=== PATIENT | female | born 1970 | race African-American/Black ===

== ENCOUNTER 2016-10-28 11:13 | Inpatient (IN) | payer OTHER ==
[2016-10-28 12:26] VITALS: BMI 26.6
--- NOTE | 2016-10-28 13:38 | HP ---
CIWA Score - CIWA Score Nausea/Vomitin Muscle Tremors: 2 Anxiety: 4-Mod. Anxious/Guarded Agitation: 0-Normal Activity Paroxysmal Sweats: 3 Orientation: 0-Oriented Tacttile Disturbances: 0-None Auditory Disturbances: 0-None Visual Disturbances: 3-Moderate Sensitivity Headache: 0-None Present CIWA-Ar Total Score: 15 Admission ROS BHS - HPI Chief Complaint: "I'm sick and tired of being sick and tired and of getting high and I need a way out." Pt. is here to Detox from Alcohol. Allergies/Adverse Reactions: Allergies Allergy/AdvReac Type Severity Reaction Status Date / Time No Known Allergies Allergy Verified 10/28/16 12:34 History of Present Illness: Pt. is a 46 YO female here to detox from Alcohol. Pt. has had 1 previous detox admission at [facility]. Exam Limitations: No Limitations - Ebola screening Have you traveled outside of the country in the last 21 days: No Have you had contact with anyone from an Ebola affected area: No Have you been sick,other than usual withdrawal symptoms: No Do you have a fever: No - Review of Systems Constitutional: Diaphoresis, Loss of Appetite, Malaise, Night Sweats, Changes in sleep, Unintentional Wgt. Loss (Lost approx. 10 lbs. over last few days.) EENT: reports: Dental Problems (Upper Denture.) Respiratory: reports: No Symptoms reported Cardiac: reports: No Symptoms Reported GI: reports: Nausea, Poor Appetite : reports: No Symptoms Reported Musculoskeletal: reports: Back Pain (Six bulging discs.), Muscle Pain, Joint Stiffness (Bilateral knees.) Integumentary: reports: No Symptoms Reported Neuro: reports: Tremors Endocrine: reports: No Symptoms Reported Hematology: reports: Anemia (Iron-Deficiency type.) Psychiatric: reports: Judgement Intact, Mood/Affect Appropiate, Orientated x3, Anxious (On med.), Depressed (On med.) Other Systems: Reviewed and Negative Patient History - Patient Medical History Hx Anemia: Yes (Iron-Deficiancy; takes MVI.) Hx Asthma: Yes (Uses 2 Inhalers.) Hx Chronic Obstructive Pulmonary Disease (COPD): No Hx Cancer: No Hx Cardiac Disorders: No Hx Congestive Heart Failure: No Hx Hypertension: Yes (On med.) Hx Hypercholesterolemia: No Hx Pacemaker: No HX Cerebrovascular Accident: No Hx Seizures: No Hx Dementia: No Hx Diabetes: No Hx Gastrointestinal Disorders: No Hx Liver Disease: No Hx Genitourinary Disorders: No Hx Sexually Transmitted Disorders: No Hx Renal Disease (ESRD): No Hx Thyroid Disease: Yes (HYPERTHYROIDISM; On med.) Hx Human Immunodeficiency Virus (HIV): No (Last Tested: 2015: NEGATIVE.) Hx Hepatitis C: No (Last Tested: 2015: NEGATIVE.) Hx Depression: Yes (On med.) Hx Suicide Attempt: No (PATIENT DENIES CURRENT SI / HI.) Hx Bipolar Disorder: Yes (On meds.) Hx Schizophrenia: No Other Medical History: PTSD. - Patient Surgical History Past Surgical History: No Hx Neurologic Surgery: No Hx Cataract Extraction: No Hx Cardiac Surgery: No Hx Lung Surgery: No Hx Breast Surgery: No Hx Breast Biopsy: No Hx Abdominal Surgery: No Hx Appendectomy: No Hx Cholecystectomy: No Hx Genitourinary Surgery: No Hx Section: No Hx Orthopedic Surgery: No Hx Hysterectomy: No Anesthesia Reaction: No - PPD History Previous Implant?: Yes Documented Results: Positive w/o proof Implanted On Prior [facility] Admission?: No PPD to be Administered?: No - Reproductive History Patient is a Female of Child Bearing Age (11 -55 yrs old): Yes Last Menstrual Period: 10/06/14 Patient : No - Smoking Cessation Smoking history: Current every day smoker Have you smoked in the past 12 months: Yes Aproximately how many cigarettes per day: 6 Cigars Per Day: 0 Hx Chewing Tobacco Use: No Initiated information on smoking cessation: Yes 'Breaking Loose' booklet given: 10/28/16 (GIVEN ON UNIT.) - Substance & Tx. History Hx Alcohol Use: Yes Hx Substance Use: Yes Substance Use Type: Alcohol, Cocaine Hx Substance Use Treatment: Yes (1 Previous Detox admission at [facility].) - Substances Abused Alcohol Route: Oral Frequency: Daily Amount used: liquor- 3 pints, beer- 1 six pack Age of first use: 20 Date of Last Use: 10/28/16 Crack Route: Smoking Frequency: Daily Amount used: 10 bags Age of first use: 20 Date of Last Use: 10/28/16 Family Disease History - Family Disease History Family Disease History: Heart Disease: Mother (Alzheimer's Disease; Kidney Ca.) , [place]: Father ( FROM [place]. OF ?), Mother, Other: Grandparent (Hyperthyroidism.) , Mother, Son (Depression.), Daughter (Depression.) Admission Physical Exam S - Vital Signs Vital Signs: Vital Signs - 24 hr 10/28/16 12:21 Temperature 98.3 F Pulse Rate 88 Respiratory 20 Rate Blood Pressure 133/79 - Physical General Appearance: Yes: No Apparent Distress, Nourished, Appropriately Dressed , Tremorous HEENTM: Yes: Hearing grossly Normal, Normocephalic, Normal Voice, [place], Pharynx Normal Respiratory: Yes: Chest Non-Tender, Lungs Clear, No Respiratory Distress Neck: Yes: No masses,lesions,Nodules, Supple, Trachea in good position Breast: Yes: Breast Exam Deferred Cardiology: Yes: Regular Rhythm, Regular Rate, S1, S2 Abdominal: Yes: Normal Bowel Sounds, Non Tender, Soft, Protuberent Genitourinary: Yes: Within Normal Limits Back: Yes: Decreased Range of Motion Musculoskeletal: Yes: Gait Steady, Joint Stiffness, Muscle Pain Extremities: Yes: Tremors Neurological: Yes: Fully Oriented, Alert, Normal Mood/Affect, Normal Response Integumentary: Yes: Normal Color, Dry, Warm Lymphatic: Yes: Within Normal Limits - Diagnostic (1) HTN (hypertension) Current Visit: Yes Status: Chronic Qualifiers: Hypertension type: essential hypertension Qualified Code(s): I10 - Essential (primary) hypertension (2) Hyperthyroidism Current Visit: Yes Status: Chronic (3) Alcohol dependence with uncomplicated withdrawal Current Visit: Yes Status: Acute (4) Cocaine dependence, uncomplicated Current Visit: Yes Status: Acute (5) Nicotine dependence Current Visit: Yes Status: Chronic Qualifiers: Nicotine product type: cigarettes Substance use status: uncomplicated Qualified Code(s): F17.210 - Nicotine dependence, cigarettes, uncomplicated (6) Asthma Current Visit: Yes Status: Chronic Qualifiers: Asthma severity: mild persistent Asthma complication type: uncomplicated Qualified Code(s): J45.30 - Mild persistent asthma, uncomplicated (7) Acute sinus infection Current Visit: Yes Status: Acute Qualifiers: Sinusitis location: unspecified location Recurrence: not specified as recurrent Qualified Code(s): J01.90 - Acute sinusitis, unspecified Cleared for Admission S - Detox or Rehab S Level of Care: Medically Managed (ADVISED PATIENT TO FOLLOW-UP WITH [facility] / REHAB MEDICAL PROVIDER AFTER DISCSHARGE FROM DETOX FOR GENERAL MEDICAL ASSESSMENT.) Detox Regimen/Protocol: Librium BHS Breath Alcohol Content Breath Alcohol Content: 0 Urine Pregancy Test - Result Urine Test Results: Negative- NO Line Present Urine Drug Screen - Results Drug Screen Negative: No Urine Drug Screen Results: WINSOME-Cocaine
[2016-10-28] MEDS ORDERED: ACETAMINOPHEN 325 MG TABLET (FP) PO PRN (14:08)
[2016-10-28] MEDS ORDERED: MAG HYDROX/AL HYDROX/SIMETH 30 ML UNIT-DOSE CUP PO PRN (14:08)
[2016-10-28] MEDS ORDERED: guaiFENesin/D-METHORPHAN HB 10 ML UNIT-DOSE CUPS PO PRN (14:08)
[2016-10-28] MEDS ORDERED: MAGNESIUM CITRATE 300 ML BOTTLE PO PRN (14:08)
[2016-10-28] MEDS ORDERED: MENTHOL/PHENOL 1 EACH UD MM PRN (14:08)
[2016-10-28] MEDS ORDERED: LOPERAMIDE HCL 2 MG CAPSULE PO PRN (14:08)
[2016-10-28] MEDS ORDERED: MAGNESIUM HYDROX 2400MG/30ML ORAL SUSPENSION 30 ML CUP PO PRN (14:08)
[2016-10-28] MEDS ORDERED: P-EPHED 60MG/TRIPROLIDI 2.5MG TABLET PO PRN (14:08)
[2016-10-28] MEDS ORDERED: diphenhydrAMINE HCL 50 MG CAPSULE PO PRN (14:08)
[2016-10-28] MEDS ORDERED: NICOTINE POLACRILEX 2 MG GUM BC PRN (14:08)
[2016-10-28] MEDS ORDERED: chlordiazePOXIDE HCL 25 MG CAPSULE PO PRN (14:08)
[2016-10-28] MEDS ORDERED: chlordiazePOXIDE HCL 25 MG CAPSULE PO ONE (14:08)
[2016-10-28] MEDS ORDERED: IBUPROFEN 400 MG TABLET (FP) PO PRN (14:08)
[2016-10-28] MEDS ORDERED: hydrOXYzine PAMOATE 50 MG CAPSULE (FP) PO PRN (14:08)
[2016-10-28] MEDS: NICOTINE 14 MG/24 HOURS TOPICAL PATCH TD SCH (14:47)
[2016-10-28] MEDS: AMOXICILLIN 500 MG CAPSULE (FP) PO SCH ×2 (15:25→23:30)
[2016-10-28] MEDS ORDERED: ALBUTEROL SO4 6.7 GM HFA INHALER IH PRN (15:31)
[2016-10-28] MEDS: chlordiazePOXIDE HCL 25 MG CAPSULE PO SCH ×2 (17:43→23:31)
[2016-10-28 18:17] LABS: URINE APPEARANCE CLEAR; URINE BILIRUBIN NEGATIVE (NEGATIVE); URINE COLOR YELLOW; URINE GLUCOSE (UA) NEGATIVE (NEGATIVE); URINE KETONE TRACE (NEGATIVE); URINE LEUK ESTERASE NEGATIVE (NEGATIVE); URINE NITRITE NEGATIVE (NEGATIVE); URINE PROTEIN NEGATIVE (NEGATIVE); URINE UROBILINOGEN 2.0 E.U/dl E.U./dl (0.2-1.0)
[2016-10-28 18:22] LABS: URINE BLOOD 1+ (NEGATIVE)
[2016-10-28 18:24] LABS: URINE BACTERIA RARE /hpf (NONE SEEN); URINE MUCUS FEW; URINE RBC 16 /hpf (0-3); URINE WBC 1 /hpf (3-5)
[2016-10-28] MEDS: NIFEdipine 10 MG CAPSULE (FP) PO SCH (23:31)
[2016-10-28] MEDS: THIAMINE HCL 100 MG TABLET (FP) PO SCH (23:31)
[2016-10-28] MEDS: TOLNAFTATE 1% CREAM 15 GM TUBE TP SCH (23:31)
[2016-10-29] MEDS: AMOXICILLIN 500 MG CAPSULE (FP) PO SCH ×3 (05:52→22:32)
[2016-10-29] MEDS: chlordiazePOXIDE HCL 25 MG CAPSULE PO SCH ×4 (05:52→22:33)
[2016-10-29] MEDS: NIFEdipine 10 MG CAPSULE (FP) PO SCH (08:29)
--- NOTE | 2016-10-29 09:43 | CONSULT ---
[facility] Psychiatric Consult - Data Date of interview: 10/29/16 Admission source: [facility] Substance Abuse History: - Smoking Cessation. Smoking history: Current every day smoker. Have you smoked in the past 12 months: Yes. Aproximately how many cigarettes per day: 6. Cigars Per Day: 0. Hx Chewing Tobacco Use: No. Initiated information on smoking cessation: Yes. 'Breaking Loose' booklet given : 10/28/16 (GIVEN ON UNIT.). - Substance & Tx. History. Hx Alcohol Use: Yes. Hx Substance Use: Yes. Substance Use Type: Alcohol, Cocaine. Hx Substance Use Treatment: Yes (1 Previous Detox admission at [facility] - Substances Abused. Alcohol. Route: Oral. Frequency: Daily. Amount used: liquor- 3 pints, beer- 1 six pack. Age of first use: 20. Date of Last Use: 10/28/16. Crack. Route: Smoking. Frequency: Daily. Amount used: 10 bags. Age of first use: 20. Date of Last Use: 10/28/16 Medical History: Asthma, HTN, Hyperthyroidism Psychiatric History: Patient reports history of depression and anxiety, reportsd taking prior to admission: Abilify 15mg poqd. Paxil 20mg poqd. Buspar 15mg poqd Physical/Sexual Abuse/Trauma History: Denies Additional Comment: Abilify 15mg poqd. Paxil 20mg poqd. Buspar 15mg poqd Mental Status Exam - Mental Status Exam Alert and Oriented to: Person Patient Appearance: Unkempt Mood: Apprehensive Affect: Mood Congruent Patient Behavior: Cooperative Speech Pattern: Appropriate Voice Loudness: Normal Thought Process: Goal Oriented Thought Disorder: Being Controlled Hallucinations: Denies Suicidal Ideation: Denies Homicidal Ideation: Denies Insight/Judgement: Fair Sleep: Difficulty falling asleep Appetite: Fair Muscle strength/Tone: Normal Gait/Station: Normal Additional Comments: Abilify 15mg poqd. Paxil 20mg poqd. Buspar 15mg poqd Psychiatric Findings - Problem List ([place] 1, 2,3) (1) Alcohol dependence with uncomplicated withdrawal Current Visit: Yes Status: Acute (2) Cocaine dependence, uncomplicated Current Visit: Yes Status: Acute (3) Hyperthyroidism Current Visit: Yes Status: Chronic (4) Nicotine dependence Current Visit: Yes Status: Chronic Qualifiers: Nicotine product type: cigarettes Substance use status: uncomplicated Qualified Code(s): F17.210 - Nicotine dependence, cigarettes, uncomplicated (5) Alcohol dependence Current Visit: No Status: Acute (6) Cocaine dependence Current Visit: No Status: Acute (7) Drug-induced mood disorder Current Visit: Yes Status: Acute - Initial Treatment Plan Initial Treatment Plan: Abilify 15mg poqd. Paxil 20mg poqd. Buspar 15mg poqd
[2016-10-29 10:00] LABS: MCH 25.3 pg (25.7-33.7); MCHC 31.6 g/dl (32.0-36.0); MEAN PLT VOLUME 9.6 fl (7.5-11.1); PLATELET COUNT 269 K/MM3 (134-434); RDW 16.9 % (11.6-15.6); WHITE BLOOD COUNT 4.4 K/mm3 (4.0-10.0)
--- NOTE | 2016-10-29 10:06 | CONSULT ---
[facility] Psychiatric Consult - Data Date of interview: 10/29/16 Admission source: [facility] Identifying data: This is 46 years old female with no psychiatric hospitalization history intoxicated withAlcohol, Cocaine and Nicotine Substance Abuse History: - Smoking Cessation. Smoking history: Current every day smoker. Have you smoked in the past 12 months: Yes. Aproximately how many cigarettes per day: 6. Cigars Per Day: 0. Hx Chewing Tobacco Use: No. Initiated information on smoking cessation: Yes. 'Breaking Loose' booklet given : 10/28/16 (GIVEN ON UNIT.). - Substance & Tx. History. Hx Alcohol Use: Yes. Hx Substance Use: Yes. Substance Use Type: Alcohol, Cocaine. Hx Substance Use Treatment: Yes (1 Previous Detox admission at [facility] - Substances Abused. Alcohol. Route: Oral. Frequency: Daily. Amount used: liquor- 3 pints, beer- 1 six pack. Age of first use: 20. Date of Last Use: 10/28/16. Crack. Route: Smoking. Frequency: Daily. Amount used: 10 bags. Age of first use: 20. Date of Last Use: 10/28/16 Medical History: Asthma, HTN, Hyperthyroidism history Psychiatric History: Patient reports history of depression and reports taking prior to admission: Abilify 15mg poqd. Paxil 20mg poqd. Buspar 15mg poqd Physical/Sexual Abuse/Trauma History: Denies Additional Comment: Abilify 15mg poqd. Paxil 20mg poqd. Buspar 15mg poqd Mental Status Exam - Mental Status Exam Alert and Oriented to: Person Cognitive Function: Fair Mood: Sad Affect: Flat Patient Behavior: Sedated, Cooperative Speech Pattern: Appropriate Voice Loudness: Mildly Soft/Quiet Thought Process: Circumstantial Thought Disorder: Being Controlled Hallucinations: Denies Suicidal Ideation: Denies Homicidal Ideation: Denies Insight/Judgement: Fair Sleep: Difficulty falling asleep Appetite: Weight gain Muscle strength/Tone: Moderate Hypotonicity Gait/Station: Shuffling Additional Comments: Abilify 15mg poqd. Paxil 20mg poqd. Buspar 15mg poqd Psychiatric Findings - Problem List ([place] 1, 2,3) (1) Alcohol dependence with uncomplicated withdrawal Current Visit: Yes Status: Acute (2) Cocaine dependence, uncomplicated Current Visit: Yes Status: Acute (3) Hyperthyroidism Current Visit: Yes Status: Chronic (4) Nicotine dependence Current Visit: Yes Status: Chronic Qualifiers: Nicotine product type: cigarettes Substance use status: uncomplicated Qualified Code(s): F17.210 - Nicotine dependence, cigarettes, uncomplicated (5) Alcohol dependence Current Visit: No Status: Acute (6) Cocaine dependence Current Visit: No Status: Acute (7) Drug-induced mood disorder Current Visit: Yes Status: Acute - Initial Treatment Plan Initial Treatment Plan: Abilify 15mg poqd. Paxil 20mg poqd. Buspar 15mg poqd
[2016-10-29 10:21] LABS: ALBUMIN 3.2 g/dl (3.4-5.0); ANION GAP 7 (8-16); CO2 25 mmol/L (21-32); GLUCOSE,RANDOM 83 mg/dL (74-106)
[2016-10-29 10:25] LABS: ALK PHOS 48 U/L (45-117); BILIRUBIN,TOTAL 0.4 mg/dL (0.2-1.0); CREATININE 0.9 mg/dL (0.55-1.02); SGOT/AST 8 U/L (15-37); SGPT/ALT 12 U/L (12-78); TOT PROT 6.3 g/dl (6.4-8.2)
[2016-10-29] MEDS: NICOTINE 14 MG/24 HOURS TOPICAL PATCH TD SCH (10:26)
[2016-10-29] MEDS: LORATADINE 10 MG TABLET PO SCH (10:27)
[2016-10-29] MEDS: ARIPiprazole 15 MG TABLET PO SCH (10:27)
[2016-10-29] MEDS: PARoxetine HCL 20 MG TABLET (FP) PO SCH (10:27)
[2016-10-29] MEDS: TOLNAFTATE 1% CREAM 15 GM TUBE TP SCH ×2 (10:27→22:34)
[2016-10-29] MEDS: PRENATAL VITAMINS W/ FOLIC ACID TABLET (FP) PO SCH (10:27)
[2016-10-29] MEDS: METHIMAZOLE 10 MG TABLET (FP) PO SCH (10:28)
[2016-10-29] MEDS: CYCLOBENZAPRINE HCL 10 MG TABLET (FP) PO PRN ×2 (10:33→22:33)
--- NOTE | 2016-10-29 11:03 | PN ---
S CIWA - CIWA Score Nausea/Vomitin-No Nausea/No Vomiting Muscle Tremors: 4-Moderate,w/Arms Extend Anxiety: 4-Mod. Anxious/Guarded Agitation: 4-Moderately Restless Paroxysmal Sweats: 3 Orientation: 0-Oriented Tacttile Disturbances: 0-None Auditory Disturbances: 0-None Visual Disturbances: 0-None Headache: 0-None Present CIWA-Ar Total Score: 15 BHS Progress Note (SOAP) Subjective: back pain sweats irritable interrupted sleep Objective: 10/29/16 11:02 Vital Signs Temperature 97.9 F 10/29/16 10:01 Pulse Rate 81 10/29/16 10:01 Respiratory Rate 18 10/29/16 10:01 Blood Pressure 117/79 10/29/16 10:01 O2 Sat by Pulse Oximetry (%) Laboratory Tests 10/28/16 10/29/16 10/29/16 18:00 07:00 07:00 WBC 4.4 RBC 4.19 Hgb 10.6 L Hct 33.5 MCV 80.0 MCHC 31.6 L RDW 16.9 H Plt Count 269 MPV 9.6 Sodium 141 Potassium 4.2 Chloride 109 H Carbon Dioxide 25 Anion Gap 7 L BUN 9 D Creatinine 0.9 D Creat Clearance w eGFR > 60 Random Glucose 83 Calcium 8.0 L Total Bilirubin 0.4 D AST 8 L ALT 12 Alkaline Phosphatase 48 D Total Protein 6.3 L Albumin 3.2 L Urine Color Yellow Urine Appearance Clear Urine pH 5.0 Ur Specific [place] 1.025 Urine Protein Negative Urine Glucose (UA) Negative Urine Ketones Trace H Urine Blood 1+ H Urine Nitrite Negative Urine Bilirubin Negative Urine Urobilinogen 2.0 e.u/dl H Ur Leukocyte Esterase Negative Urine RBC 16 Urine WBC 1 Ur Epithelial Cells Moderate Urine Bacteria Rare Urine Mucus Few awake/alert ambulating no acute distress Assessment: 10/29/16 11:03 withdrawal sx Plan: continue detox increase fluids lidocaine patch naproxyn bid
[2016-10-29] MEDS ORDERED: NIFEdipine E.R. 30 MG TABLET (FP) PO SCH (12:00)
[2016-10-29] MEDS: LIDOCAINE 5% TOPICAL PATCH TP SCH (12:04)
[2016-10-29] MEDS: NAPROXEN 500 MG TABLET (FP) PO SCH ×2 (12:04→22:33)
--- NOTE | 2016-10-29 13:43 | EKG ---
Test Reason : Blood Pressure : / mmHG Vent. Rate : 078 BPM Atrial Rate : 078 BPM P-R Int : 174 ms QRS Dur : 098 ms QT Int : 388 ms P-R-T Axes : 066 023 024 degrees QTc Int : 442 ms NORMAL SINUS RHYTHM WITH SINUS ARRHYTHMIA NORMAL ECG NO PREVIOUS ECGS AVAILABLE Confirmed by TAMMIE TOURE MD ([id number]) on 10/29/2016 1:42:41 PM Referred By: Confirmed By:TAMMIE TOURE MD
[2016-10-29] MEDS ORDERED: NIFEdipine E.R. 30 MG TABLET (FP) PO ONE (14:00)
[2016-10-29] MEDS: METHYL SALICYLATE/MENTHOL OINT 30 GM TUBE TP SCH (22:32)
[2016-10-29] MEDS: THIAMINE HCL 100 MG TABLET (FP) PO SCH (23:02)
[2016-10-30] MEDS: AMOXICILLIN 500 MG CAPSULE (FP) PO SCH ×3 (05:58→22:46)
[2016-10-30] MEDS: chlordiazePOXIDE HCL 25 MG CAPSULE PO SCH ×2 (05:58→11:23)
[2016-10-30] MEDS ORDERED: NIFEdipine 10 MG CAPSULE (FP) PO SCH (10:00)
[2016-10-30] MEDS: LIDOCAINE 5% TOPICAL PATCH TP SCH (11:18)
[2016-10-30] MEDS: METHIMAZOLE 10 MG TABLET (FP) PO SCH (11:18)
[2016-10-30] MEDS: PRENATAL VITAMINS W/ FOLIC ACID TABLET (FP) PO SCH (11:18)
[2016-10-30] MEDS: LORATADINE 10 MG TABLET PO SCH (11:19)
--- NOTE | 2016-10-30 11:19 | PN ---
[facility] CIWA - CIWA Score Nausea/Vomitin Muscle Tremors: 2 Anxiety: 2 Agitation: 2 Paroxysmal Sweats: 3 Orientation: 0-Oriented Tacttile Disturbances: 2-Mild Itch/Numbness/Burn Auditory Disturbances: 0-None Visual Disturbances: 0-None Headache: 0-None Present CIWA-Ar Total Score: 13 S Progress Note (SOAP) Subjective: interrupted sleep, sweats, lbp Objective: 10/30/16 11:14 Vital Signs Temperature 98.2 F 10/30/16 11:09 Pulse Rate 84 10/30/16 11:09 Respiratory Rate 16 10/30/16 11:09 Blood Pressure 109/52 10/30/16 11:09 O2 Sat by Pulse Oximetry (%) Laboratory Tests 10/28/16 10/29/16 10/29/16 18:00 07:00 07:00 WBC 4.4 RBC 4.19 Hgb 10.6 L Hct 33.5 MCV 80.0 MCHC 31.6 L RDW 16.9 H Plt Count 269 MPV 9.6 Sodium 141 Potassium 4.2 Chloride 109 H Carbon Dioxide 25 Anion Gap 7 L BUN 9 D Creatinine 0.9 D Creat Clearance w eGFR > 60 Random Glucose 83 Calcium 8.0 L Total Bilirubin 0.4 D AST 8 L ALT 12 Alkaline Phosphatase 48 D Total Protein 6.3 L Albumin 3.2 L Urine Color Yellow Urine Appearance Clear Urine pH 5.0 Ur Specific [place] 1.025 Urine Protein Negative Urine Glucose (UA) Negative Urine Ketones Trace H Urine Blood 1+ H Urine Nitrite Negative Urine Bilirubin Negative Urine Urobilinogen 2.0 e.u/dl H Ur Leukocyte Esterase Negative Urine RBC 16 Urine WBC 1 Ur Epithelial Cells Moderate Urine Bacteria Rare Urine Mucus Few RPR Titer 10/29/16 07:00 WBC RBC Hgb Hct MCV MCHC RDW Plt Count MPV Sodium Potassium Chloride Carbon Dioxide Anion Gap BUN Creatinine Creat Clearance w eGFR Random Glucose Calcium Total Bilirubin AST ALT Alkaline Phosphatase Total Protein Albumin Urine Color Urine Appearance Urine pH Ur Specific [place] Urine Protein Urine Glucose (UA) Urine Ketones Urine Blood Urine Nitrite Urine Bilirubin Urine Urobilinogen Ur Leukocyte Esterase Urine RBC Urine WBC Ur Epithelial Cells Urine Bacteria Urine Mucus RPR Titer Nonreactive pt aox3 in nad ambulating 10/30/16 11:17 Assessment: 10/30/16 11:17 withdrawal sx's abn . u/a anemia h/o sinus infection on amoxicillin - better 10/30/16 11:17 10/30/16 11:23 Plan: cont. detox increase fluids flexeril 10mg tid/prn naprosyn bid
[2016-10-30] MEDS: ARIPiprazole 15 MG TABLET PO SCH (11:20)
[2016-10-30] MEDS: METHYL SALICYLATE/MENTHOL OINT 30 GM TUBE TP SCH ×2 (11:20→22:50)
[2016-10-30] MEDS: NIFEdipine E.R. 30 MG TABLET (FP) PO SCH (11:21)
[2016-10-30] MEDS: PARoxetine HCL 20 MG TABLET (FP) PO SCH (11:21)
[2016-10-30] MEDS: NAPROXEN 500 MG TABLET (FP) PO SCH ×2 (11:22→22:47)
[2016-10-30] MEDS: TOLNAFTATE 1% CREAM 15 GM TUBE TP SCH ×2 (11:23→22:49)
[2016-10-30] MEDS: NICOTINE 14 MG/24 HOURS TOPICAL PATCH TD SCH (11:24)
[2016-10-30] MEDS: chlordiazePOXIDE 5 MG CAPSULE PO SCH ×2 (18:00→22:47)
[2016-10-30] MEDS: THIAMINE HCL 100 MG TABLET (FP) PO SCH (22:46)
[2016-10-30] MEDS: CYCLOBENZAPRINE HCL 10 MG TABLET (FP) PO PRN (22:48)
[2016-10-31] MEDS: chlordiazePOXIDE 5 MG CAPSULE PO SCH ×2 (07:55→10:38)
[2016-10-31] MEDS: AMOXICILLIN 500 MG CAPSULE (FP) PO SCH ×3 (10:32→23:18)
[2016-10-31] MEDS: NAPROXEN 500 MG TABLET (FP) PO SCH ×2 (10:32→22:55)
[2016-10-31] MEDS: METHIMAZOLE 10 MG TABLET (FP) PO SCH (10:32)
[2016-10-31] MEDS: PRENATAL VITAMINS W/ FOLIC ACID TABLET (FP) PO SCH (10:32)
[2016-10-31] MEDS: LORATADINE 10 MG TABLET PO SCH (10:33)
[2016-10-31] MEDS: ARIPiprazole 15 MG TABLET PO SCH (10:33)
[2016-10-31] MEDS: METHYL SALICYLATE/MENTHOL OINT 30 GM TUBE TP SCH ×2 (10:33→22:56)
[2016-10-31] MEDS: PARoxetine HCL 20 MG TABLET (FP) PO SCH (10:33)
[2016-10-31] MEDS: NIFEdipine E.R. 30 MG TABLET (FP) PO SCH (10:33)
[2016-10-31] MEDS: NICOTINE 14 MG/24 HOURS TOPICAL PATCH TD SCH (10:34)
[2016-10-31] MEDS: TOLNAFTATE 1% CREAM 15 GM TUBE TP SCH ×2 (10:37→22:57)
[2016-10-31] MEDS: LIDOCAINE 5% TOPICAL PATCH TP SCH (10:37)
[2016-10-31] MEDS: CYCLOBENZAPRINE HCL 10 MG TABLET (FP) PO PRN (10:38)
--- NOTE | 2016-10-31 11:05 | PN ---
BHS Progress Note (SOAP) Subjective: anxious sweats Objective: 10/31/16 11:05 Vital Signs Temperature 97.7 F 10/31/16 10:57 Pulse Rate 80 10/31/16 10:57 Respiratory Rate 20 10/31/16 10:57 Blood Pressure 138/77 10/31/16 10:57 O2 Sat by Pulse Oximetry (%) awake/alert ambulating no acute distress Assessment: 10/31/16 11:05 withdrawal sx Plan: continue detox increase fluids d/c in am
[2016-10-31] MEDS: chlordiazePOXIDE HCL 10 MG CAPSULE PO SCH ×2 (17:10→22:57)
[2016-10-31] MEDS: THIAMINE HCL 100 MG TABLET (FP) PO SCH (22:55)
[2016-11-01] MEDS: chlordiazePOXIDE HCL 10 MG CAPSULE PO SCH (07:56)
--- NOTE | 2016-11-01 08:46 | DS ---
[facility] Detox Discharge Summary Admission Date: 10/28/16 Discharge Date: 11/01/16 - History Present History: Alcohol Dependence, Cocaine Dependence - Physical Exam Results Vital Signs: Vital Signs Temperature 99.1 F 11/01/16 07:15 Pulse Rate 80 11/01/16 07:15 Respiratory Rate 18 11/01/16 07:15 Blood Pressure 125/78 11/01/16 07:15 O2 Sat by Pulse Oximetry (%) - Treatment Hospital Course: Detox Protocol Followed, Detoxed Safely, Responded well, Discharged Condition Good, Rehab Referral Accepted - Medication Discharge Medications: Ambulatory Orders Amoxicillin - [Amoxicillin 500mg Capsule -] 500 mg PO TID 10/28/16 Aripiprazole [Abilify -] 15 mg PO DAILY 10/28/16 Buspirone HCl [Buspar -] 15 mg PO DAILY 10/28/16 Loratadine [Claritin -] 10 mg PO DAILY 10/28/16 Methimazole [Tapazole -] 10 mg PO DAILY 10/28/16 Methocarbamol [Robaxin -] 750 mg PO HS 10/28/16 Nifedipine [Procardia Capsule -] 10 mg PO TID 10/28/16 Paroxetine HCl [Paxil -] 20 mg PO DAILY 10/28/16 Prednisone [Deltasone -] 20 mg PO DAILY 10/28/16 Aripiprazole [Abilify -] 15 mg PO DAILY #30 tablet 10/29/16 Buspirone HCl [Buspar -] 15 mg PO HS #30 tablet 10/29/16 Paroxetine HCl [Paxil -] 20 mg PO DAILY #30 tablet 10/29/16 - Diagnosis (1) Acute sinus infection Current Visit: Yes Status: Acute Qualifiers: Sinusitis location: unspecified location Recurrence: not specified as recurrent Qualified Code(s): J01.90 - Acute sinusitis, unspecified (2) Alcohol dependence with uncomplicated withdrawal Current Visit: Yes Status: Chronic (3) Cocaine dependence, uncomplicated Current Visit: Yes Status: Chronic (4) Drug-induced mood disorder Current Visit: Yes Status: Acute (5) Asthma Current Visit: Yes Status: Chronic Qualifiers: Asthma severity: mild intermittent Asthma complication type: uncomplicated Qualified Code(s): J45.20 - Mild intermittent asthma, uncomplicated (6) HTN (hypertension) Current Visit: Yes Status: Chronic Qualifiers: Hypertension type: essential hypertension Qualified Code(s): I10 - Essential (primary) hypertension (7) Hyperthyroidism Current Visit: Yes Status: Chronic (8) Nicotine dependence Current Visit: Yes Status: Chronic Qualifiers: Nicotine product type: cigarettes Substance use status: uncomplicated Qualified Code(s): F17.210 - Nicotine dependence, cigarettes, uncomplicated (9) Cocaine dependence Current Visit: Yes Status: Chronic Qualifiers: Substance use status: uncomplicated Qualified Code(s): F14.20 - Cocaine dependence, uncomplicated - AMA Did Patient Leave Against Medical Advice: No
[2016-11-01 10:39] VITALS: BP 118/73; PULSE 85; TEMP 96.8
== END 2016-11-01 09:35 | disposition home or self-care (01) | DRG 774 ==
LOC: YASAS 11:13 → Y6N 12:44
PROVIDERS: ADMIT Internal Medicine; ATTEND Internal Medicine Addiction Medicine
PROC: HZ2ZZZZ Detoxification Services for Substance Abuse Treatment (ICD-10-PCS; principal; 2016-10-28)
DX: F10.230 Alcohol dependence with withdrawal, uncomplicated (principal); F14.20 Cocaine dependence, uncomplicated; F17.210 Nicotine dependence, cigarettes, uncomplicated; F19.24 Other psychoactive substance dependence with psychoactive substance-induced mood disorder; J45.909 Unspecified asthma, uncomplicated; J01.90 Acute sinusitis, unspecified; I10 Essential (primary) hypertension; E05.90 Thyrotoxicosis, unspecified without thyrotoxic crisis or storm; R82.90 Unspecified abnormal findings in urine; D50.9 Iron deficiency anemia, unspecified
CPT/HCPCS: 36415; 80053; 81003; 81015; 85027; 86593; 93005; 93010

== ENCOUNTER 2017-02-26 11:42 | Inpatient (IN) | payer OTHER ==
[2017-02-26 12:00] VITALS: BMI 25.4
--- NOTE | 2017-02-26 15:07 | HP ---
CIWA Score - CIWA Score Nausea/Vomitin-No Nausea/No Vomiting Muscle Tremors: 4-Moderate,w/Arms Extend Anxiety: 3 Agitation: 4-Moderately Restless Paroxysmal Sweats: 3 Orientation: 0-Oriented Tacttile Disturbances: 0-None Auditory Disturbances: 0-None Visual Disturbances: 0-None Headache: 0-None Present CIWA-Ar Total Score: 14 Admission ROS BHS - HPI Chief Complaint: I am here to detox. Allergies/Adverse Reactions: Allergies Allergy/AdvReac Type Severity Reaction Status Date / Time No Known Allergies Allergy Verified 02/26/17 12:11 History of Present Illness: pt is a 46yr old female with a history of alcohol dependence seeking detox for treatment. Exam Limitations: No Limitations - Ebola screening Have you traveled outside of the country in the last 21 days: No Have you had contact with anyone from an Ebola affected area: No Have you been sick,other than usual withdrawal symptoms: No Do you have a fever: No - Review of Systems Constitutional: Diaphoresis, Loss of Appetite, Changes in sleep EENT: reports: Tearing, Nose Congestion Respiratory: reports: No Symptoms reported Cardiac: reports: Syncope GI: reports: No Symptoms Reported, Poor Fluid Intake : reports: No Symptoms Reported Musculoskeletal: reports: Back Pain Integumentary: reports: Flushing, Sweating Neuro: reports: Headache, Tingling, Tremors Endocrine: reports: Excessive Sweating, Flushing, Intolerance to Cold, Intolerance to Heat Hematology: reports: No Symptoms Reported Psychiatric: reports: Judgement Intact, Mood/Affect Appropiate, Orientated x3, Agitated, Anxious Other Systems: Reviewed and Negative Patient History - Patient Medical History Hx Anemia: Yes (Iron-Deficiancy; takes MVI.) Hx Asthma: Yes (Pt is on MDI) Hx Chronic Obstructive Pulmonary Disease (COPD): No Hx Cancer: No Hx Cardiac Disorders: No Hx Congestive Heart Failure: No Hx Hypertension: Yes (on meds.) Hx Hypercholesterolemia: No Hx Pacemaker: No HX Cerebrovascular Accident: No Hx Seizures: No Hx Dementia: No Hx Diabetes: No Hx Gastrointestinal Disorders: No Hx Liver Disease: No Hx Genitourinary Disorders: No Hx Sexually Transmitted Disorders: No Hx Renal Disease (ESRD): No Hx Thyroid Disease: Yes (HYPERTHYROIDISM; On med.) Hx Human Immunodeficiency Virus (HIV): No (Last Tested: 2015: NEGATIVE.) Hx Hepatitis C: No (Last Tested: 2016: NEGATIVE.) Hx Depression: Yes Hx Suicide Attempt: No Hx Bipolar Disorder: Yes (On meds.) Hx Schizophrenia: No Other Medical History: insomnia - Patient Surgical History Past Surgical History: No Hx Neurologic Surgery: No Hx Cataract Extraction: No Hx Cardiac Surgery: No Hx Lung Surgery: No Hx Breast Surgery: No Hx Breast Biopsy: No Hx Abdominal Surgery: No Hx Appendectomy: No Hx Cholecystectomy: No Hx Genitourinary Surgery: No Hx Section: No Hx Orthopedic Surgery: No Hx Hysterectomy: No Anesthesia Reaction: No - PPD History Previous Implant?: Yes Documented Results: Positive w/o proof Implanted On Prior [facility] Admission?: No PPD to be Administered?: No - Reproductive History Patient is a Female of Child Bearing Age (11 -55 yrs old): Yes Last Menstrual Period: 02/02/17 Patient : No - Smoking Cessation Smoking history: Current every day smoker Have you smoked in the past 12 months: Yes Aproximately how many cigarettes per day: 8 Cigars Per Day: 0 Hx Chewing Tobacco Use: No Initiated information on smoking cessation: Yes 'Breaking Loose' booklet given: 02/26/17 - Substance & Tx. History Hx Alcohol Use: Yes Hx Substance Use: Yes Substance Use Type: Alcohol, Cocaine Hx Substance Use Treatment: Yes (last detox [facility]) - Substances Abused Alcohol Route: Oral Frequency: Daily Amount used: 3 PINTS/ 6PK BEER Age of first use: 16 Date of Last Use: 02/26/17 Cocaine Route: Smoking Frequency: Daily Amount used: $500 Age of first use: 17 Date of Last Use: 02/26/17 Family Disease History - Family Disease History Family Disease History: Heart Disease: Mother (Alzheimer's Disease; Kidney Ca.) , [place]: Father ( FROM [place] OF ?), Mother, Other: Grandparent (Hyperthyroidism.) , Mother, Son (Depression.), Daughter (Depression.) Admission Physical Exam BHS - Vital Signs Vital Signs: Vital Signs - 24 hr 02/26/17 11:57 Temperature 98.6 F Pulse Rate 82 Respiratory 20 Rate Blood Pressure 133/83 - Physical General Appearance: Yes: Within Normal Limits, Appropriately Dressed, Moderate Distress, Tremorous, Irritable, Sweating, Anxious HEENTM: Yes: Hearing grossly Normal, Nasal Congestion, Rhinorrhea Respiratory: Yes: Lungs Clear, Normal Breath Sounds, No Respiratory Distress Neck: Yes: No masses,lesions,Nodules Breast: Yes: Within Normal Limits Cardiology: Yes: Regular Rhythm, Regular Rate, S1, S2 Abdominal: Yes: Normal Bowel Sounds Genitourinary: Yes: Within Normal Limits Back: Yes: Normal Inspection Musculoskeletal: Yes: full range of Motion, Back pain, Joint Stiffness Extremities: Yes: Normal Capillary Refill, Normal Inspection, Tremors Neurological: Yes: Fully Oriented, Alert, Normal Response Integumentary: Yes: Normal Color, Diaphoresis Lymphatic: Yes: Within Normal Limits - Diagnostic (1) Alcohol dependence with uncomplicated withdrawal Current Visit: Yes Status: Chronic (2) Asthma Current Visit: Yes Status: Chronic Qualifiers: Asthma severity: mild intermittent (3) Cocaine dependence Current Visit: Yes Status: Chronic Qualifiers: Substance use status: uncomplicated (4) HTN (hypertension) Current Visit: No Status: Chronic Qualifiers: Hypertension type: essential hypertension (5) Hyperthyroidism Current Visit: Yes Status: Chronic (6) Nicotine dependence Current Visit: Yes Status: Chronic Qualifiers: Nicotine product type: cigarettes Substance use status: uncomplicated Qualified Code(s): F17.210 - Nicotine dependence, cigarettes, uncomplicated Cleared for Admission [facility] - Detox or Rehab [facility] Level of Care: Medically Managed Detox Regimen/Protocol: Librium [facility] Breath Alcohol Content Breath Alcohol Content: 0.041 Urine Pregancy Test - Result Urine Test Results: Negative- NO Line Present Urine Drug Screen - Results Drug Screen Negative: No Urine Drug Screen Results: WINSOME-Cocaine
[2017-02-26] MEDS ORDERED: diphenhydrAMINE HCL 50 MG CAPSULE PO PRN (15:09)
[2017-02-26] MEDS ORDERED: ACETAMINOPHEN 325 MG TABLET (FP) PO PRN (15:09)
[2017-02-26] MEDS ORDERED: MAGNESIUM HYDROX 2400MG/30ML ORAL SUSPENSION 30 ML CUP PO PRN (15:09)
[2017-02-26] MEDS ORDERED: MENTHOL/PHENOL 1 EACH UD MM PRN (15:09)
[2017-02-26] MEDS ORDERED: LOPERAMIDE HCL 2 MG CAPSULE PO PRN (15:09)
[2017-02-26] MEDS ORDERED: P-EPHED 60MG/TRIPROLIDI 2.5MG TABLET PO PRN (15:09)
[2017-02-26] MEDS ORDERED: NICOTINE POLACRILEX 4 MG GUM BC PRN (15:09)
[2017-02-26] MEDS ORDERED: MAGNESIUM CITRATE 300 ML BOTTLE PO PRN (15:09)
[2017-02-26] MEDS ORDERED: chlordiazePOXIDE HCL 25 MG CAPSULE PO PRN (15:09)
[2017-02-26] MEDS ORDERED: hydrOXYzine PAMOATE 50 MG CAPSULE (FP) PO PRN (15:09)
[2017-02-26] MEDS ORDERED: guaiFENesin/D-METHORPHAN HB 10 ML UNIT-DOSE CUPS PO PRN (15:09)
[2017-02-26] MEDS ORDERED: ALBUTEROL SO4 6.7 GM HFA INHALER IH PRN (15:11)
[2017-02-26] MEDS ORDERED: chlordiazePOXIDE HCL 25 MG CAPSULE PO ONE (16:00)
[2017-02-26] MEDS: chlordiazePOXIDE HCL 25 MG CAPSULE PO SCH ×2 (16:57→22:04)
[2017-02-26] MEDS: THIAMINE HCL 100 MG TABLET (FP) PO SCH (22:03)
[2017-02-26] MEDS: BACITRACIN 0.9 GM PACKET TP SCH (22:03)
[2017-02-26] MEDS: IBUPROFEN 400 MG TABLET (FP) PO PRN (22:06)
[2017-02-26 22:25] LABS: URINE APPEARANCE SLCLOUDY; URINE BILIRUBIN NEGATIVE (NEGATIVE); URINE BLOOD NEGATIVE (NEGATIVE); URINE COLOR YELLOW; URINE GLUCOSE (UA) NEGATIVE (NEGATIVE); URINE KETONE NEGATIVE (NEGATIVE); URINE NITRITE NEGATIVE (NEGATIVE); URINE PROTEIN NEGATIVE (NEGATIVE)
[2017-02-26] MEDS: BUDESONIDE/FORMETEROL FUMARATE 80/4.5 mcg INHALER IH SCH (22:31)
[2017-02-26 22:50] LABS: URINE LEUK ESTERASE 3+ (NEGATIVE)
[2017-02-26 23:00] LABS: URINE BACTERIA RARE /hpf (NONE SEEN); URINE HYALINE CAST 2 /lpf; URINE MUCUS FEW; URINE RBC 5 /hpf (0-3); URINE WBC 8 /hpf (3-5)
[2017-02-26 23:24] LABS: HIV 1 & 2 AB NEGATIVE; HIV 1 AGp24 NEGATIVE
[2017-02-27] MEDS: chlordiazePOXIDE HCL 25 MG CAPSULE PO SCH ×4 (06:12→22:14)
--- NOTE | 2017-02-27 08:43 | CONSULT ---
[facility] Psychiatric Consult - Data Date of interview: 02/27/17 Admission source: [facility] Identifying data: This is 46m years old female with no psychiatric [id number] history intoxicated with: Alcohol, Cocaine and Nicotine Substance Abuse History: Smoking history: Current every day smoker. Have you smoked in the past 12 months: Yes. Aproximately how many cigarettes per day: 8. Cigars Per Day: 0. Hx Chewing Tobacco Use: No. Initiated information on smoking cessation: Yes. 'Breaking Loose' booklet given: 02/26/17. - Substance & Tx. History. Hx Alcohol Use: Yes. Hx Substance Use: Yes. Substance Use Type : Alcohol, Cocaine. Hx Substance Use Treatment: Yes (last [facility] - Substances Abused. Alcohol. Route: Oral. Frequency: Daily. Amount used: 3 PINTS/ 6PK BEER. Age of first use: 16. Date of Last Use: 02/26/17. Cocaine. Route: Smoking. Frequency: Daily. Amount used: $500. Age of first use: 17. Date of Last Use: 02/26/17 Medical History: Asthma, Hypethyroidism, HTN Psychiatric History: Patient reports history of anxiety, reprots taking prior to admission: Buspar 15mg poqd, Ambien 19mg po qhs Physical/Sexual Abuse/Trauma History: Denies Additional Comment: Buspar 15mg poqd,. Ambien 19mg po qhs Mental Status Exam - Mental Status Exam Alert and Oriented to: Person Cognitive Function: Fair Patient Appearance: Unkempt Mood: Sad Affect: Flat Patient Behavior: Cooperative Speech Pattern: Delayed Voice Loudness: Mildly Soft/Quiet Thought Process: Goal Oriented Thought Disorder: Being Controlled Hallucinations: Denies Suicidal Ideation: Denies Homicidal Ideation: Denies Insight/Judgement: Fair Sleep: Difficulty falling asleep Appetite: Weight gain Muscle strength/Tone: Mild Hypotonicity Gait/Station: Normal Additional Comments: Buspar 15mg poqd,. Ambien 19mg po qhs Psychiatric Findings - Problem List ([place] 1, 2,3) (1) Alcohol dependence with uncomplicated withdrawal Current Visit: Yes Status: Chronic (2) Cocaine dependence Current Visit: Yes Status: Chronic Qualifiers: Substance use status: uncomplicated (3) Nicotine dependence Current Visit: Yes Status: Chronic Qualifiers: Nicotine product type: cigarettes Substance use status: uncomplicated Qualified Code(s): F17.210 - Nicotine dependence, cigarettes, uncomplicated (4) Drug-induced mood disorder Current Visit: No Status: Acute (5) Cocaine dependence, uncomplicated Current Visit: No Status: Chronic - Initial Treatment Plan Initial Treatment Plan: Buspar 15mg poqd,. Ambien 19mg po qhs
[2017-02-27 09:54] LABS: MCHC 31.7 g/dl (32.0-36.0); MEAN CELL VOLUME 78.9 fl (80-96); MEAN PLT VOLUME 10.1 fl (7.5-11.1); PLATELET COUNT 226 K/MM3 (134-434); RDW 16.9 % (11.6-15.6); WHITE BLOOD COUNT 6.9 K/mm3 (4.0-10.0)
--- NOTE | 2017-02-27 09:59 | PN ---
S CIWA - CIWA Score Nausea/Vomitin Muscle Tremors: 4-Moderate,w/Arms Extend Anxiety: 4-Mod. Anxious/Guarded Agitation: 4-Moderately Restless Paroxysmal Sweats: 3 Orientation: 0-Oriented Tacttile Disturbances: 1-Very Mild Itch/Numbness Auditory Disturbances: 0-None Visual Disturbances: 0-None Headache: 1-Very Mild CIWA-Ar Total Score: 20 BHS Progress Note (SOAP) Subjective: nausea, sweats, interrupted sleep, anxiety, tremors Objective: 02/27/17 09:58 Vital Signs - 8 hr 02/27/17 05:46 Temperature 97.8 F Pulse Rate 72 Respiratory 18 Rate Blood Pressure 125/76 Laboratory Tests 02/26/17 02/26/17 13:00 21:58 Urine Color Yellow Urine Appearance Slcloudy Urine pH 5.0 Ur Specific [place] 1.025 Urine Protein Negative Urine Glucose (UA) Negative Urine Ketones Negative Urine Blood Negative Urine Nitrite Negative Urine Bilirubin Negative Urine Urobilinogen 2.0 H Ur Leukocyte Esterase 3+ H Urine RBC 5 Urine WBC 8 Ur Epithelial Cells Few Urine Bacteria Rare Hyaline Casts 2 Urine Mucus Few HIV 1&2 Antibody Screen Negative HIV P24 Antigen Negative labs still pending Assessment: 02/27/17 09:58 withdrawal sx, abnormal u/a Plan: cont detox, repeat u/a , check labs, fluids
[2017-02-27] MEDS: LORATADINE 10 MG TABLET PO SCH (10:25)
[2017-02-27] MEDS: BACITRACIN 0.9 GM PACKET TP SCH ×2 (10:25→22:14)
[2017-02-27] MEDS: BUDESONIDE/FORMETEROL FUMARATE 80/4.5 mcg INHALER IH SCH ×2 (10:26→22:16)
[2017-02-27] MEDS: METHIMAZOLE 10 MG TABLET (FP) PO SCH (10:26)
[2017-02-27] MEDS: NIFEdipine E.R 60 MG TABLET (UD) PO SCH (10:26)
[2017-02-27] MEDS: PRENATAL VITAMINS W/ FOLIC ACID TABLET (FP) PO SCH (10:26)
[2017-02-27] MEDS: IBUPROFEN 400 MG TABLET (FP) PO PRN (10:27)
[2017-02-27] MEDS: NICOTINE 21 MG/24 HOURS TOPICAL PATCH TD SCH (10:30)
--- NOTE | 2017-02-27 10:45 | EKG ---
Test Reason : Blood Pressure : / mmHG Vent. Rate : 077 BPM Atrial Rate : 077 BPM P-R Int : 174 ms QRS Dur : 086 ms QT Int : 382 ms P-R-T Axes : 063 017 020 degrees QTc Int : 432 ms NORMAL SINUS RHYTHM POSSIBLE LEFT ATRIAL ENLARGEMENT BORDERLINE ECG WHEN COMPARED WITH ECG OF 28-OCT-2016 13:41, NO SIGNIFICANT CHANGE WAS FOUND Confirmed by ZANE GUPTA MD ([id number]) on 02/27/2017 10:45:35 AM Referred By: Confirmed By:ZANE GUPTA MD
[2017-02-27 11:17] LABS: ALBUMIN 3.8 g/dl (3.4-5.0); ALK PHOS 56 U/L (45-117); ANION GAP 11 (8-16); BILIRUBIN,TOTAL 0.4 mg/dL (0.2-1.0); CALCIUM 8.7 mg/dL (8.5-10.1); CO2 23 mmol/L (21-32); GLUCOSE,RANDOM 66 mg/dL (74-106); SGOT/AST 12 U/L (15-37); SGPT/ALT 16 U/L (12-78)
[2017-02-27] MEDS: FERROUS SO4 325 MG TABLET (FP) PO SCH ×2 (12:12→17:35)
[2017-02-27 21:48] LABS: URINE APPEARANCE CLOUDY; URINE BILIRUBIN NEGATIVE (NEGATIVE); URINE BLOOD NEGATIVE (NEGATIVE); URINE COLOR YELLOW; URINE GLUCOSE (UA) NEGATIVE (NEGATIVE); URINE KETONE NEGATIVE (NEGATIVE); URINE LEUK ESTERASE 3+ (NEGATIVE); URINE NITRITE NEGATIVE (NEGATIVE); URINE PROTEIN NEGATIVE (NEGATIVE); URINE UROBILINOGEN NEGATIVE mg/dL (0.2-1.0)
[2017-02-27 21:52] LABS: URINE MUCUS FEW; URINE RBC 15 /hpf (0-3); URINE WBC 36 /hpf (3-5)
[2017-02-27] MEDS: ZOLPIDEM TARTRATE 10 MG TABLET (PARK CARE ONLY) PO PRN (22:14)
[2017-02-27] MEDS: THIAMINE HCL 100 MG TABLET (FP) PO SCH (22:14)
[2017-02-27] MEDS: DOCUSATE SODIUM 100 MG CAPSULE (FP) PO SCH (22:16)
[2017-02-28] MEDS: chlordiazePOXIDE HCL 25 MG CAPSULE PO SCH ×2 (05:16→10:15)
[2017-02-28] MEDS: FERROUS SO4 325 MG TABLET (FP) PO SCH ×3 (07:16→17:41)
[2017-02-28] MEDS: NIFEdipine E.R 60 MG TABLET (UD) PO SCH (10:14)
[2017-02-28] MEDS: PRENATAL VITAMINS W/ FOLIC ACID TABLET (FP) PO SCH (10:15)
[2017-02-28] MEDS: IBUPROFEN 400 MG TABLET (FP) PO PRN (10:15)
[2017-02-28] MEDS: LORATADINE 10 MG TABLET PO SCH (10:15)
[2017-02-28] MEDS: BACITRACIN 0.9 GM PACKET TP SCH ×2 (10:15→22:17)
[2017-02-28] MEDS: NICOTINE 21 MG/24 HOURS TOPICAL PATCH TD SCH (11:35)
[2017-02-28] MEDS: METHIMAZOLE 10 MG TABLET (FP) PO SCH (11:37)
[2017-02-28] MEDS: BUDESONIDE/FORMETEROL FUMARATE 80/4.5 mcg INHALER IH SCH ×2 (11:37→22:50)
--- NOTE | 2017-02-28 12:17 | PN ---
[facility] CIWA - CIWA Score Nausea/Vomitin-No Nausea/No Vomiting Muscle Tremors: 3 Anxiety: 3 Agitation: 3 Paroxysmal Sweats: 3 Orientation: 0-Oriented Tacttile Disturbances: 0-None Auditory Disturbances: 0-None Visual Disturbances: 0-None Headache: 0-None Present CIWA-Ar Total Score: 12 S Progress Note (SOAP) Subjective: agitation sweats irritable body aches Objective: 02/28/17 12:16 Vital Signs Temperature 98.8 F 02/28/17 09:58 Pulse Rate 87 02/28/17 09:58 Respiratory Rate 16 02/28/17 09:58 Blood Pressure 128/75 02/28/17 09:58 O2 Sat by Pulse Oximetry (%) Laboratory Tests 02/26/17 02/26/17 02/26/17 13:00 15:00 21:58 WBC RBC Hgb Hct MCV MCH MCHC RDW Plt Count MPV Sodium Potassium Chloride Carbon Dioxide Anion Gap BUN Creatinine Creat Clearance w eGFR Random Glucose Calcium Total Bilirubin AST ALT Alkaline Phosphatase Total Protein Albumin Urine Color Yellow Urine Appearance Slcloudy Urine pH 5.0 Ur Specific [place] 1.025 Urine Protein Negative Urine Glucose (UA) Negative Urine Ketones Negative Urine Blood Negative Urine Nitrite Negative Urine Bilirubin Negative Urine Urobilinogen 2.0 H Ur Leukocyte Esterase 3+ H Urine RBC 5 Urine WBC 8 Ur Epithelial Cells Few Urine Bacteria Rare Hyaline Casts 2 Urine Mucus Few RPR Titer Hepatitis C Antibody <0.1 HIV 1&2 Antibody Screen Negative HIV P24 Antigen Negative 02/27/17 02/27/17 02/27/17 06:00 06:00 06:00 WBC 6.9 D RBC 4.23 Hgb 10.6 L Hct 33.3 MCV 78.9 L MCH 25.0 L MCHC 31.7 L RDW 16.9 H Plt Count 226 MPV 10.1 Sodium 142 Potassium 3.9 Chloride 108 H Carbon Dioxide 23 Anion Gap 11 BUN 10 Creatinine 1.0 Creat Clearance w eGFR 59.18 Random Glucose 66 L D Calcium 8.7 Total Bilirubin 0.4 AST 12 L D ALT 16 D Alkaline Phosphatase 56 Total Protein 7.0 Albumin 3.8 Urine Color Urine Appearance Urine pH Ur Specific [place] Urine Protein Urine Glucose (UA) Urine Ketones Urine Blood Urine Nitrite Urine Bilirubin Urine Urobilinogen Ur Leukocyte Esterase Urine RBC Urine WBC Ur Epithelial Cells Urine Bacteria Hyaline Casts Urine Mucus RPR Titer Nonreactive Hepatitis C Antibody HIV 1&2 Antibody Screen HIV P24 Antigen 02/27/17 20:30 WBC RBC Hgb Hct MCV MCH MCHC RDW Plt Count MPV Sodium Potassium Chloride Carbon Dioxide Anion Gap BUN Creatinine Creat Clearance w eGFR Random Glucose Calcium Total Bilirubin AST ALT Alkaline Phosphatase Total Protein Albumin Urine Color Yellow Urine Appearance Cloudy Urine pH 7.0 D Ur Specific [place] 1.025 Urine Protein Negative Urine Glucose (UA) Negative Urine Ketones Negative Urine Blood Negative Urine Nitrite Negative Urine Bilirubin Negative Urine Urobilinogen Negative Ur Leukocyte Esterase 3+ H Urine RBC 15 Urine WBC 36 Ur Epithelial Cells Moderate Urine Bacteria Hyaline Casts Urine Mucus Few RPR Titer Hepatitis C Antibody HIV 1&2 Antibody Screen HIV P24 Antigen AAOx3 ambulating no acute distress denies any u/a discomfort Assessment: 02/28/17 12:17 withdrawal sx Plan: continue detox increase fluids
[2017-02-28] MEDS: chlordiazePOXIDE 5 MG CAPSULE PO SCH ×2 (17:41→22:17)
[2017-02-28] MEDS: DOCUSATE SODIUM 100 MG CAPSULE (FP) PO SCH (22:17)
[2017-02-28] MEDS: ZOLPIDEM TARTRATE 10 MG TABLET (PARK CARE ONLY) PO PRN (22:18)
[2017-02-28] MEDS: THIAMINE HCL 100 MG TABLET (FP) PO SCH (22:19)
[2017-02-28] MEDS: MAG HYDROX/AL HYDROX/SIMETH 30 ML UNIT-DOSE CUP PO PRN (22:20)
[2017-03-01] MEDS: chlordiazePOXIDE 5 MG CAPSULE PO SCH ×2 (05:30→10:27)
[2017-03-01] MEDS: FERROUS SO4 325 MG TABLET (FP) PO SCH ×3 (07:42→17:47)
--- NOTE | 2017-03-01 09:25 | PN ---
S Progress Note (SOAP) Subjective: ALERT,IRRITABLE,INTERRUPTED SLEEP Objective: 03/01/17 09:24 Vital Signs Temperature 97.9 F 03/01/17 06:26 Pulse Rate 98 H 03/01/17 06:26 Respiratory Rate 20 03/01/17 06:26 Blood Pressure 101/63 03/01/17 06:26 O2 Sat by Pulse Oximetry (%) Assessment: 03/01/17 09:24 WITHDRAWAL SYMPTOM Plan: CONTINUE DETOX,DISCHARGE IN AM
[2017-03-01] MEDS: LORATADINE 10 MG TABLET PO SCH (10:27)
[2017-03-01] MEDS: PRENATAL VITAMINS W/ FOLIC ACID TABLET (FP) PO SCH (10:27)
[2017-03-01] MEDS: METHIMAZOLE 10 MG TABLET (FP) PO SCH (10:27)
[2017-03-01] MEDS: BACITRACIN 0.9 GM PACKET TP SCH ×2 (10:27→22:10)
[2017-03-01] MEDS: NIFEdipine E.R 60 MG TABLET (UD) PO SCH (10:27)
[2017-03-01] MEDS: NICOTINE 21 MG/24 HOURS TOPICAL PATCH TD SCH (10:28)
[2017-03-01] MEDS: BUDESONIDE/FORMETEROL FUMARATE 80/4.5 mcg INHALER IH SCH ×2 (10:28→22:11)
[2017-03-01] MEDS: chlordiazePOXIDE HCL 10 MG CAPSULE PO SCH ×2 (17:47→22:11)
[2017-03-01] MEDS: DOCUSATE SODIUM 100 MG CAPSULE (FP) PO SCH (22:08)
[2017-03-01] MEDS: ZOLPIDEM TARTRATE 10 MG TABLET (PARK CARE ONLY) PO PRN (22:08)
[2017-03-01] MEDS: THIAMINE HCL 100 MG TABLET (FP) PO SCH (22:08)
[2017-03-01] MEDS: MAG HYDROX/AL HYDROX/SIMETH 30 ML UNIT-DOSE CUP PO PRN (22:09)
[2017-03-02] MEDS: chlordiazePOXIDE HCL 10 MG CAPSULE PO SCH (08:09)
[2017-03-02] MEDS: PRENATAL VITAMINS W/ FOLIC ACID TABLET (FP) PO SCH (09:29)
[2017-03-02] MEDS: LORATADINE 10 MG TABLET PO SCH (09:29)
[2017-03-02] MEDS: NIFEdipine E.R 60 MG TABLET (UD) PO SCH (09:29)
[2017-03-02] MEDS: BUDESONIDE/FORMETEROL FUMARATE 80/4.5 mcg INHALER IH SCH (09:30)
[2017-03-02] MEDS: NICOTINE 21 MG/24 HOURS TOPICAL PATCH TD SCH (09:30)
[2017-03-02] MEDS: METHIMAZOLE 10 MG TABLET (FP) PO SCH (09:30)
[2017-03-02] MEDS: FERROUS SO4 325 MG TABLET (FP) PO SCH (09:30)
[2017-03-02] MEDS: BACITRACIN 0.9 GM PACKET TP SCH (09:30)
[2017-03-02 10:20] VITALS: BP 122/70; PULSE 89; TEMP 97.7
--- NOTE | 2017-03-02 10:49 | DS ---
[facility] Detox Discharge Summary Admission Date: 02/26/17 Discharge Date: 03/02/17 - History Present History: Alcohol Dependence, Cocaine Dependence Pertinent Past History: asthma, HTN, hyperthyroidism, anemia - Physical Exam Results Vital Signs: Vital Signs Temperature 97.7 F 03/02/17 10:00 Pulse Rate 89 03/02/17 10:00 Respiratory Rate 20 03/02/17 10:00 Blood Pressure 122/70 03/02/17 10:00 O2 Sat by Pulse Oximetry (%) Pertinent Admission Physical Exam Findings: withdrawal sx Laboratory Last Values WBC 6.9 K/mm3 (4.0-10.0) D 02/27/17 06:00 RBC 4.23 M/mm3 (3.60-5.2) 02/27/17 06:00 Hgb 10.6 GM/dL (10.7-15.3) L 02/27/17 06:00 Hct 33.3 % (32.4-45.2) 02/27/17 06:00 MCV 78.9 fl (80-96) L 02/27/17 06:00 MCH 25.0 pg (25.7-33.7) L 02/27/17 06:00 MCHC 31.7 g/dl (32.0-36.0) L 02/27/17 06:00 RDW 16.9 % (11.6-15.6) H 02/27/17 06:00 Plt Count 226 K/MM3 (134-434) 02/27/17 06:00 MPV 10.1 fl (7.5-11.1) 02/27/17 06:00 Sodium 142 mmol/L (136-145) 02/27/17 06:00 Potassium 3.9 mmol/L (3.5-5.1) 02/27/17 06:00 Chloride 108 mmol/L (98-107) H 02/27/17 06:00 Carbon Dioxide 23 mmol/L (21-32) 02/27/17 06:00 Anion Gap 11 (8-16) 02/27/17 06:00 BUN 10 mg/dL (7-18) 02/27/17 06:00 Creatinine 1.0 mg/dL (0.55-1.02) 02/27/17 06:00 Creat Clearance w eGFR 59.18 (>60) 02/27/17 06:00 Random Glucose 66 mg/dL (74-106) L D 02/27/17 06:00 Calcium 8.7 mg/dL (8.5-10.1) 02/27/17 06:00 Total Bilirubin 0.4 mg/dL (0.2-1.0) 02/27/17 06:00 AST 12 U/L (15-37) L D 02/27/17 06:00 ALT 16 U/L (12-78) D 02/27/17 06:00 Alkaline Phosphatase 56 U/L (45-117) 02/27/17 06:00 Total Protein 7.0 g/dl (6.4-8.2) 02/27/17 06:00 Albumin 3.8 g/dl (3.4-5.0) 02/27/17 06:00 Urine Color Yellow 02/27/17 20:30 Urine Appearance Cloudy 02/27/17 20:30 Urine pH 7.0 (5.0-8.0) D 02/27/17 20:30 Ur Specific [place] 1.025 (1.005-1.025) 02/27/17 20:30 Urine Protein Negative (NEGATIVE) 02/27/17 20:30 Urine Glucose (UA) Negative (NEGATIVE) 02/27/17 20:30 Urine Ketones Negative (NEGATIVE) 02/27/17 20:30 Urine Blood Negative (NEGATIVE) 02/27/17 20:30 Urine Nitrite Negative (NEGATIVE) 02/27/17 20:30 Urine Bilirubin Negative (NEGATIVE) 02/27/17 20:30 Urine Urobilinogen Negative mg/dL (0.2-1.0) 02/27/17 20:30 Ur Leukocyte Esterase 3+ (NEGATIVE) H 02/27/17 20:30 Urine RBC 15 /hpf (0-3) 02/27/17 20:30 Urine WBC 36 /hpf (3-5) 02/27/17 20:30 Ur Epithelial Cells Moderate /hpf (FEW) 02/27/17 20:30 Urine Bacteria Rare /hpf (NONE SEEN) 02/26/17 21:58 Hyaline Casts 2 /lpf 02/26/17 21:58 Urine Mucus Few 02/27/17 20:30 RPR Titer Nonreactive (NONREACTIVE) 02/27/17 06:00 Hepatitis C Antibody <0.1 s/co ratio (0.0-0.9) 02/26/17 15:00 HIV 1&2 Antibody Screen Negative 02/26/17 13:00 HIV P24 Antigen Negative 02/26/17 13:00 labs noted - Treatment Hospital Course: Detox Protocol Followed, Detoxed Safely, Responded well, Discharged Condition Good - Medication Discharge Medications: Ambulatory Orders Buspirone HCl [Buspar -] 15 mg PO DAILY 10/28/16 Loratadine [Claritin -] 10 mg PO DAILY 10/28/16 Methimazole [Tapazole -] 10 mg PO DAILY 10/28/16 Methocarbamol [Robaxin -] 750 mg PO HS 10/28/16 Albuterol Sulfate Inhaler - [Ventolin Hfa Inhaler -] 2 inh PO Q4H PRN 02/26/17 Budesonide/Formeterol Fumarate [SYMBICORT 80/4.5mcg -] 1 inh PO BID 02/26/17 Nifedipine ER [Procardia Xl -] 60 mg PO DAILY 02/26/17 Buspirone HCl [Buspar -] 15 mg PO DAILY #30 tablet 02/27/17 Zolpidem Tartrate [Ambien] 10 mg PO HS #14 tablet MDD 10 02/27/17 - Diagnosis (1) Alcohol dependence with uncomplicated withdrawal Current Visit: Yes Status: Acute (2) Cocaine dependence Current Visit: Yes Status: Acute Qualifiers: Substance use status: uncomplicated (3) Hyperthyroidism Current Visit: Yes Status: Chronic (4) Nicotine dependence Current Visit: Yes Status: Acute Qualifiers: Nicotine product type: cigarettes Substance use status: uncomplicated Qualified Code(s): F17.210 - Nicotine dependence, cigarettes, uncomplicated (5) Drug-induced mood disorder Current Visit: No Status: Acute (6) Cocaine dependence, uncomplicated Current Visit: Yes Status: Acute (7) HTN (hypertension) Current Visit: Yes Status: Chronic Qualifiers: Hypertension type: essential hypertension - AMA Did Patient Leave Against Medical Advice: No
== END 2017-03-02 09:35 | disposition home or self-care (01) | DRG 774 ==
LOC: YASAS 11:42 → Y6N 15:36
PROVIDERS: ADMIT Internal Medicine Addiction Medicine; ATTEND Internal Medicine Addiction Medicine
PROC: HZ2ZZZZ Detoxification Services for Substance Abuse Treatment (ICD-10-PCS; principal; 2017-02-26)
DX: F10.230 Alcohol dependence with withdrawal, uncomplicated (principal); F14.20 Cocaine dependence, uncomplicated; F17.210 Nicotine dependence, cigarettes, uncomplicated; F19.24 Other psychoactive substance dependence with psychoactive substance-induced mood disorder; I10 Essential (primary) hypertension; R82.90 Unspecified abnormal findings in urine; J45.909 Unspecified asthma, uncomplicated; D50.9 Iron deficiency anemia, unspecified; E05.90 Thyrotoxicosis, unspecified without thyrotoxic crisis or storm
CPT/HCPCS: 36415; 71020-TC; 80053; 81003; 81015; 85027; 86593; 86803; 87086; 87389; 93005; 93010

== ENCOUNTER 2017-06-15 14:39 | Inpatient (IN) | payer OTHER ==
[2017-06-15 16:56] VITALS: BMI 25.5
--- NOTE | 2017-06-15 17:33 | HP ---
CIWA Score - CIWA Score Nausea/Vomitin-Mild Nausea/No Vomiting Muscle Tremors: 3 Anxiety: 4-Mod. Anxious/Guarded Agitation: 4-Moderately Restless Paroxysmal Sweats: 3 Orientation: 0-Oriented Tacttile Disturbances: 0-None Auditory Disturbances: 0-None Visual Disturbances: 0-None Headache: 0-None Present CIWA-Ar Total Score: 15 Admission ROS BHS - HPI Chief Complaint: Withdrawal sx. Allergies/Adverse Reactions: Allergies Allergy/AdvReac Type Severity Reaction Status Date / Time No Known Allergies Allergy Verified 06/15/17 16:40 History of Present Illness: 46 y/o woman with a long hx. of alcoholism is admitted for detox. Pt. has been in previous detox, denies significant sobriety. Exam Limitations: No Limitations - Ebola screening Have you traveled outside of the country in the last 21 days: No (N) Have you had contact with anyone from an Ebola affected area: No Have you been sick,other than usual withdrawal symptoms: No Do you have a fever: No - Review of Systems Constitutional: Diaphoresis EENT: reports: No Symptoms Reported Respiratory: reports: No Symptoms reported Cardiac: reports: No Symptoms Reported GI: reports: Nausea, Abdominal cramping : reports: No Symptoms Reported Musculoskeletal: reports: Back Pain Integumentary: reports: Sweating Neuro: reports: Tingling, Tremors Endocrine: reports: No Symptoms Reported Hematology: reports: No Symptoms Reported Psychiatric: reports: No Sypmtoms Reported Other Systems: Reviewed and Negative Patient History - Patient Medical History Hx Anemia: Yes (Iron-Deficiancy; takes MVI.) Hx Asthma: Yes Hx Chronic Obstructive Pulmonary Disease (COPD): No Hx Cancer: No Hx Cardiac Disorders: No Hx Congestive Heart Failure: No Hx Hypertension: Yes Hx Hypercholesterolemia: No Hx Pacemaker: No HX Cerebrovascular Accident: No Hx Seizures: No Hx Dementia: No Hx Diabetes: No Hx Gastrointestinal Disorders: No Hx Liver Disease: No Hx Genitourinary Disorders: No Hx Sexually Transmitted Disorders: No Hx Renal Disease (ESRD): No Hx Thyroid Disease: Yes (HYPERTHYROIDISM; On med.) Hx Human Immunodeficiency Virus (HIV): No Hx Hepatitis C: No Hx Depression: Yes Hx Suicide Attempt: No Hx Bipolar Disorder: Yes (On meds.) Hx Schizophrenia: No - Patient Surgical History Past Surgical History: No Hx Neurologic Surgery: No Hx Cataract Extraction: No Hx Cardiac Surgery: No Hx Lung Surgery: No Hx Breast Surgery: No Hx Breast Biopsy: No Hx Abdominal Surgery: No Hx Appendectomy: No Hx Cholecystectomy: No Hx Genitourinary Surgery: No Hx Section: No Hx Orthopedic Surgery: No Hx Hysterectomy: No Anesthesia Reaction: No - PPD History Previous Implant?: Yes Documented Results: Positive w/proof PPD to be Administered?: No - Reproductive History Patient is a Female of Child Bearing Age (11 -55 yrs old): Yes Last Menstrual Period: 06/09/17 Patient : No - Smoking Cessation Smoking history: Current every day smoker Have you smoked in the past 12 months: Yes Aproximately how many cigarettes per day: 6 Cigars Per Day: 0 Hx Chewing Tobacco Use: No Initiated information on smoking cessation: Yes 'Breaking Loose' booklet given: 06/15/17 - Substance & Tx. History Hx Alcohol Use: Yes Hx Substance Use: Yes Substance Use Type: Alcohol, Cocaine Hx Substance Use Treatment: Yes ([facility] 02/2017) - Substances Abused Alcohol Route: Oral Frequency: Daily Amount used: vODKA(/5) = 1 1/2 pint Age of first use: Date of Last Use: 06/15/17 Crack Route: Smoking Frequency: 3-6 times per week Amount used: $700 Age of first use: Date of Last Use: 06/15/17 Family Disease History - Family Disease History Family Disease History: Heart Disease: Mother (Alzheimer's Disease; Kidney Ca.) , [place]: Father ( FROM [place] OF ?), Mother, Other: Grandparent (Hyperthyroidism.) , Mother, Son (Depression.), Daughter (Depression.) Admission Physical Exam [facility] - Vital Signs Vital Signs: Vital Signs - 24 hr 06/15/17 16:54 Temperature 97 F L Pulse Rate 76 Respiratory 20 Rate Blood Pressure 127/76 - Physical General Appearance: Yes: Tremorous, Irritable, Sweating, Anxious HEENTM: Yes: Within Normal Limits Respiratory: Yes: Chest Non-Tender, Lungs Clear, Normal Breath Sounds Neck: Yes: Supple Breast: Yes: Breast Exam Deferred Cardiology: Yes: Regular Rhythm, Regular Rate, S1, S2 Abdominal: Yes: Normal Bowel Sounds, Non Tender, Soft Genitourinary: Yes: Within Normal Limits Back: Yes: Within Normal Limits Musculoskeletal: Yes: Within Normal Limits Extremities: Yes: Tremors Neurological: Yes: Fully Oriented, Alert Integumentary: Yes: Diaphoresis Lymphatic: Yes: Within Normal Limits - Diagnostic (1) Alcohol dependence with uncomplicated withdrawal Current Visit: Yes Status: Acute (2) Cocaine dependence, uncomplicated Current Visit: Yes Status: Acute Cleared for Admission [facility] - Detox or Rehab [facility] Level of Care: Medically Managed Detox Regimen/Protocol: Librium [facility] Breath Alcohol Content Breath Alcohol Content: 0 Urine Pregancy Test - Result Urine Test Results: Negative- NO Line Present Urine Drug Screen - Results Drug Screen Negative: No Urine Drug Screen Results: WINSOME-Cocaine
[2017-06-15] MEDS ORDERED: chlordiazePOXIDE HCL 25 MG CAPSULE PO PRN (17:38)
[2017-06-15] MEDS ORDERED: LOPERAMIDE HCL 2 MG CAPSULE PO PRN (17:38)
[2017-06-15] MEDS ORDERED: MAGNESIUM HYDROX 2400MG/30ML ORAL SUSPENSION 30 ML CUP PO PRN (17:38)
[2017-06-15] MEDS ORDERED: MENTHOL/PHENOL 1 EACH UD MM PRN (17:38)
[2017-06-15] MEDS ORDERED: IBUPROFEN 400 MG TABLET (FP) PO PRN (17:38)
[2017-06-15] MEDS ORDERED: ACETAMINOPHEN 325 MG TABLET (FP) PO PRN (17:38)
[2017-06-15] MEDS ORDERED: P-EPHED 60MG/TRIPROLIDI 2.5MG TABLET PO PRN (17:38)
[2017-06-15] MEDS ORDERED: NICOTINE POLACRILEX 2 MG GUM BUC PRN (17:38)
[2017-06-15] MEDS ORDERED: hydrOXYzine PAMOATE 50 MG CAPSULE (FP) PO PRN (17:38)
[2017-06-15] MEDS ORDERED: MAG HYDROX/AL HYDROX/SIMETH 30 ML UNIT-DOSE CUP PO PRN (17:38)
[2017-06-15] MEDS ORDERED: chlordiazePOXIDE HCL 25 MG CAPSULE PO ONE (17:38)
[2017-06-15] MEDS ORDERED: guaiFENesin/D-METHORPHAN HB 10 ML UNIT-DOSE CUPS PO PRN (17:38)
[2017-06-15] MEDS ORDERED: MAGNESIUM CITRATE 300 ML BOTTLE PO PRN (17:38)
[2017-06-15] MEDS ORDERED: ALBUTEROL SO4 18 GM HFA INHALER IH PRN (17:41)
[2017-06-15] MEDS: NIFEdipine E.R 60 MG TABLET (UD) PO SCH (18:24)
[2017-06-15] MEDS: NICOTINE 14 MG/24 HOURS TOPICAL PATCH TD SCH (18:32)
[2017-06-15] MEDS: LIDOCAINE 5% TOPICAL PATCH TP SCH (18:32)
[2017-06-15 20:52] LABS: URINE APPEARANCE SLCLOUDY; URINE BILIRUBIN NEGATIVE (NEGATIVE); URINE BLOOD 1+ (NEGATIVE); URINE COLOR DKYELLOW; URINE GLUCOSE (UA) NEGATIVE (NEGATIVE); URINE KETONE NEGATIVE (NEGATIVE); URINE LEUK ESTERASE NEGATIVE (NEGATIVE); URINE NITRITE NEGATIVE (NEGATIVE); URINE UROBILINOGEN 4.0 E.U/dl mg/dL (0.2-1.0)
[2017-06-15 20:54] LABS: URINE PROTEIN 1+ (NEGATIVE)
[2017-06-15 21:05] LABS: URINE BACTERIA RARE /hpf (NONE SEEN); URINE MUCUS FEW; URINE RBC 5 /hpf (0-3); URINE WBC 1 /hpf (3-5)
[2017-06-15] MEDS: chlordiazePOXIDE HCL 25 MG CAPSULE PO SCH (22:31)
[2017-06-15] MEDS: THIAMINE HCL 100 MG TABLET (FP) PO SCH (22:31)
[2017-06-15 22:43] LABS: URINE LEUK ESTERASE Negative (NEGATIVE)
[2017-06-15] MEDS: LIDOCAINE PATCH REMOVAL MC SCH (23:01)
[2017-06-15] MEDS: BUDESONIDE/FORMETEROL FUMARATE 80/4.5 mcg INHALER IH SCH (23:02)
[2017-06-15] MEDS: TOLNAFTATE 1% CREAM 15 GM TUBE TP SCH (23:02)
[2017-06-15] MEDS: METHIMAZOLE 10 MG TABLET (FP) PO SCH (23:02)
[2017-06-16] MEDS: chlordiazePOXIDE HCL 25 MG CAPSULE PO SCH ×4 (06:06→22:34)
--- NOTE | 2017-06-16 07:05 | CONSULT ---
[facility] Psychiatric Consult - Data Date of interview: 06/16/17 Admission source: Self-referred Identifying data: Ms Lehman is a 46 years old single Black female, mother of 7 children, unemployed on public assistance, homeless Substance Abuse History: Reports history of alcohol and cocaine use. Refer to addiction counselor's note for further information Medical History: Significant for anemia, bronchial asthma, hypertension, hyperthyroidism and positive PPD. Smokes 6 cigarettes daily Psychiatric History: Reports that she was diagnosed with Bipolar Disorder more than 15 years ago. Denies previous psychiatric admission. Reports seeing a psychiatrist on site at [facility] in [place], [place]. Reports being prescribed Abilify(dose unknown). Review of record shows 3 previous admissions to inpt detox in this facility: 2013; October 2016 & Feb 2017. In August 2013, she saw copywriter, denies history of previous psychiatric treatment and prescribed no medication . On both admissons in 2016, he saw Dr Lopez, reported history of depression /anxiety and prescribed Abilify 15 mg/day, Paxil 20 mg/day and Buspar 15 mg/day(October 2016 and Buspar 15 mg/day & Ambien 10mg/hs( Feb 2017). She initially told copywriter that she has medsin her belongings( Abilify, Paxil and Buspar). However, when told that she would be taken to security to have these medications verified by copywriter, she claims to only have Buspar. Patient is very irritable, hostile. Requests that Buspar be ordered as prescribed Physical/Sexual Abuse/Trauma History: Denies history of verbal, physical or sexual abuse as well as DV relationship Additional Comment: Reports history of previous arrests but not willing to give details at this time Mental Status Exam - Mental Status Exam Alert and Oriented to: Time, Place, Person Cognitive Function: Fair Patient Appearance: Well Groomed Mood: Irritable Affect: Blunted Speech Pattern: Clear Voice Loudness: Normal Thought Process: Intact, Goal Oriented Thought Disorder: Not Present Hallucinations: Denies Suicidal Ideation: Denies Homicidal Ideation: Denies Insight/Judgement: Poor Sleep: Well, Poorly Appetite: Good Muscle strength/Tone: Normal Gait/Station: Normal Psychiatric Findings - Problem List ([place] 1, 2,3) (1) Substance induced mood disorder Current Visit: Yes Status: Acute (2) Alcohol dependence with uncomplicated withdrawal Current Visit: Yes Status: Acute (3) Cocaine dependence, uncomplicated Current Visit: Yes Status: Acute (4) Nicotine dependence Current Visit: No Status: Chronic Qualifiers: Nicotine product type: cigarettes Substance use status: uncomplicated Qualified Code(s): F17.210 - Nicotine dependence, cigarettes, uncomplicated (5) HTN (hypertension) Current Visit: No Status: Chronic Qualifiers: Hypertension type: essential hypertension Qualified Code(s): I10 - Essential (primary) hypertension (6) Hyperthyroidism Current Visit: No Status: Chronic - Initial Treatment Plan Initial Treatment Plan: 1) Start Buspar 15 mg po daily. 2) Continue inpatient detoxification
[2017-06-16] MEDS: FERROUS SO4 325 MG TABLET (FP) PO SCH ×2 (08:06→17:12)
[2017-06-16 10:16] LABS: MCH 25.2 pg (25.7-33.7); MCHC 31.1 g/dl (32.0-36.0); MEAN PLT VOLUME 9.6 fl (7.5-11.1); PLATELET COUNT 237 K/MM3 (134-434); RDW 15.2 % (11.6-15.6)
[2017-06-16 10:19] LABS: ALBUMIN 3.2 g/dl (3.4-5.0); ANION GAP 6 (8-16); CALCIUM 7.9 mg/dL (8.5-10.1); CO2 27 mmol/L (21-32); CREATININE 0.7 mg/dL (0.55-1.02); GLUCOSE,RANDOM 88 mg/dL (74-106); SGOT/AST 6 U/L (15-37); SGPT/ALT 12 U/L (12-78)
[2017-06-16 10:20] LABS: ALK PHOS 56 U/L (45-117); BILIRUBIN,TOTAL 0.4 mg/dL (0.2-1.0); TOT PROT 6.3 g/dl (6.4-8.2)
[2017-06-16] MEDS: PRENATAL VITAMINS W/ FOLIC ACID TABLET (FP) PO SCH (10:43)
[2017-06-16] MEDS: BUDESONIDE/FORMETEROL FUMARATE 80/4.5 mcg INHALER IH SCH ×2 (10:44→22:35)
[2017-06-16] MEDS: LIDOCAINE 5% TOPICAL PATCH TP SCH (10:45)
[2017-06-16] MEDS: TOLNAFTATE 1% CREAM 15 GM TUBE TP SCH ×2 (10:45→22:36)
[2017-06-16] MEDS: NICOTINE 14 MG/24 HOURS TOPICAL PATCH TD SCH (10:46)
[2017-06-16] MEDS: NIFEdipine E.R 60 MG TABLET (UD) PO SCH (10:48)
[2017-06-16 11:54] LABS: HIV 1 & 2 AB NEGATIVE; HIV 1 AGp24 NEGATIVE
[2017-06-16] MEDS ORDERED: busPIRone HCL 5 MG TABLET PO ONE (12:57)
[2017-06-16] MEDS: METHIMAZOLE 10 MG TABLET (FP) PO SCH (13:32)
--- NOTE | 2017-06-16 17:15 | EKG ---
Test Reason : Blood Pressure : / mmHG Vent. Rate : 077 BPM Atrial Rate : 077 BPM P-R Int : 172 ms QRS Dur : 094 ms QT Int : 394 ms P-R-T Axes : 072 068 038 degrees QTc Int : 445 ms NORMAL SINUS RHYTHM NORMAL ECG WHEN COMPARED WITH ECG OF 26-FEB-2017 15:47, T WAVE AMPLITUDE HAS INCREASED IN ANTERIOR LEADS Confirmed by SHAE NUNEZ MD ([id number]) on 06/16/2017 5:14:35 PM Referred By: Confirmed By:SHAE NUNEZ MD
--- NOTE | 2017-06-16 17:17 | PN ---
[facility] CIWA - CIWA Score Nausea/Vomitin-No Nausea/No Vomiting Muscle Tremors: 3 Anxiety: 4-Mod. Anxious/Guarded Agitation: 4-Moderately Restless Paroxysmal Sweats: 3 Orientation: 0-Oriented Tacttile Disturbances: 0-None Auditory Disturbances: 0-None Visual Disturbances: 0-None Headache: 0-None Present CIWA-Ar Total Score: 14 [facility] Progress Note (SOAP) Subjective: Anxiety,tremors,sweating,interrupted sleep,restless. Objective: 06/16/17 17:16 Vital Signs - 8 hr 06/16/17 06/16/17 11:59 14:26 Temperature 97.5 F L Pulse Rate 78 79 Respiratory 16 18 Rate Blood Pressure 113/75 127/77 Laboratory Tests 06/15/17 06/16/17 06/16/17 18:19 07:40 07:40 WBC 4.0 D RBC 4.29 Hgb 10.8 Hct 34.7 MCV 81.0 MCH 25.2 L MCHC 31.1 L RDW 15.2 D Plt Count 237 MPV 9.6 Sodium Potassium Chloride Carbon Dioxide Anion Gap BUN Creatinine Creat Clearance w eGFR Random Glucose Calcium Total Bilirubin AST ALT Alkaline Phosphatase Total Protein Albumin Urine Color Dkyellow Urine Appearance Slcloudy Urine pH 6.0 Ur Specific [place] 1.030 Urine Protein 1+ H Urine Glucose (UA) Negative Urine Ketones Negative Urine Blood 1+ H Urine Nitrite Negative Urine Bilirubin Negative Urine Urobilinogen 4.0 e.u/dl H Ur Leukocyte Esterase Negative Urine WBC (Auto) 1 Urine RBC (Auto) 5 Ur Epithelial Cells Many Urine Bacteria Rare Urine Mucus Few RPR Titer HIV 1&2 Antibody Screen Negative HIV P24 Antigen Negative 06/16/17 06/16/17 07:40 07:40 WBC RBC Hgb Hct MCV MCH MCHC RDW Plt Count MPV Sodium 141 Potassium 3.8 Chloride 108 H Carbon Dioxide 27 Anion Gap 6 L BUN 10 Creatinine 0.7 D Creat Clearance w eGFR > 60 Random Glucose 88 D Calcium 7.9 L Total Bilirubin 0.4 AST 6 L D ALT 12 D Alkaline Phosphatase 56 Total Protein 6.3 L Albumin 3.2 L Urine Color Urine Appearance Urine pH Ur Specific [place] Urine Protein Urine Glucose (UA) Urine Ketones Urine Blood Urine Nitrite Urine Bilirubin Urine Urobilinogen Ur Leukocyte Esterase Urine WBC (Auto) Urine RBC (Auto) Ur Epithelial Cells Urine Bacteria Urine Mucus RPR Titer Nonreactive HIV 1&2 Antibody Screen HIV P24 Antigen labs noted Assessment: 06/16/17 17:17 Withdrawal sx. Plan: Continue detox
[2017-06-16] MEDS: THIAMINE HCL 100 MG TABLET (FP) PO SCH (22:34)
[2017-06-16] MEDS: LIDOCAINE PATCH REMOVAL MC SCH (22:36)
[2017-06-17] MEDS: chlordiazePOXIDE HCL 25 MG CAPSULE PO SCH ×3 (06:03→18:01)
[2017-06-17] MEDS: FERROUS SO4 325 MG TABLET (FP) PO SCH ×2 (08:05→18:01)
[2017-06-17] MEDS ORDERED: busPIRone HCL 5 MG TABLET PO SCH (10:00)
[2017-06-17] MEDS: TOLNAFTATE 1% CREAM 15 GM TUBE TP SCH ×2 (11:13→22:50)
[2017-06-17] MEDS: PRENATAL VITAMINS W/ FOLIC ACID TABLET (FP) PO SCH (11:13)
[2017-06-17] MEDS: METHIMAZOLE 10 MG TABLET (FP) PO SCH (11:14)
[2017-06-17] MEDS: BUDESONIDE/FORMETEROL FUMARATE 80/4.5 mcg INHALER IH SCH ×2 (11:14→22:37)
[2017-06-17] MEDS: LIDOCAINE 5% TOPICAL PATCH TP SCH (11:18)
[2017-06-17] MEDS: NICOTINE 14 MG/24 HOURS TOPICAL PATCH TD SCH (11:19)
[2017-06-17] MEDS: NIFEdipine E.R 60 MG TABLET (UD) PO SCH (12:00)
--- NOTE | 2017-06-17 12:17 | PN ---
[facility] CIWA - CIWA Score Nausea/Vomitin Muscle Tremors: 2 Anxiety: 2 Agitation: 2 Paroxysmal Sweats: 2 Orientation: 0-Oriented Tacttile Disturbances: 1-Very Mild Itch/Numbness Auditory Disturbances: 0-None Visual Disturbances: 0-None Headache: 0-None Present CIWA-Ar Total Score: 11 [facility] Progress Note (SOAP) Subjective: INTERRUPTED SLEEP, SWEATS, TOE FUNGUS Objective: 06/17/17 12:15 Vital Signs Temperature 96.1 F L 06/17/17 09:53 Pulse Rate 84 06/17/17 09:53 Respiratory Rate 20 06/17/17 09:53 Blood Pressure 106/60 06/17/17 09:53 O2 Sat by Pulse Oximetry (%) Laboratory Tests 06/15/17 06/16/17 06/16/17 18:19 07:40 07:40 WBC 4.0 D RBC 4.29 Hgb 10.8 Hct 34.7 MCV 81.0 MCH 25.2 L MCHC 31.1 L RDW 15.2 D Plt Count 237 MPV 9.6 Sodium Potassium Chloride Carbon Dioxide Anion Gap BUN Creatinine Creat Clearance w eGFR Random Glucose Calcium Total Bilirubin AST ALT Alkaline Phosphatase Total Protein Albumin Urine Color Dkyellow Urine Appearance Slcloudy Urine pH 6.0 Ur Specific [place] 1.030 Urine Protein 1+ H Urine Glucose (UA) Negative Urine Ketones Negative Urine Blood 1+ H Urine Nitrite Negative Urine Bilirubin Negative Urine Urobilinogen 4.0 e.u/dl H Ur Leukocyte Esterase Negative Urine WBC (Auto) 1 Urine RBC (Auto) 5 Ur Epithelial Cells Many Urine Bacteria Rare Urine Mucus Few RPR Titer HIV 1&2 Antibody Screen Negative HIV P24 Antigen Negative 06/16/17 06/16/17 07:40 07:40 WBC RBC Hgb Hct MCV MCH MCHC RDW Plt Count MPV Sodium 141 Potassium 3.8 Chloride 108 H Carbon Dioxide 27 Anion Gap 6 L BUN 10 Creatinine 0.7 D Creat Clearance w eGFR > 60 Random Glucose 88 D Calcium 7.9 L Total Bilirubin 0.4 AST 6 L D ALT 12 D Alkaline Phosphatase 56 Total Protein 6.3 L Albumin 3.2 L Urine Color Urine Appearance Urine pH Ur Specific [place] Urine Protein Urine Glucose (UA) Urine Ketones Urine Blood Urine Nitrite Urine Bilirubin Urine Urobilinogen Ur Leukocyte Esterase Urine WBC (Auto) Urine RBC (Auto) Ur Epithelial Cells Urine Bacteria Urine Mucus RPR Titer Nonreactive HIV 1&2 Antibody Screen HIV P24 Antigen PT AOX3 IN NAD AMBULATING + FUNGUS NAILS Assessment: 06/17/17 12:16 WITHDRAWAL SX'S ONYCHOMYCOSIS Plan: CONT. DETOX INCREASE FLUIDS LOTRIMIN SAGE. /D
--- NOTE | 2017-06-17 12:29 | PN ---
Psychiatric Progress Note Vital Signs: Vital Signs Period Temp Pulse Resp BP Sys/[place] Pulse Ox Last 24 Hr 96.1 F-98.2 F 79-96 16-20 106-139/60-78 Chief Complaint:: Abilify order HPI: Patient rep[ortys taking prior to admission: Abilify 15mg po qhs Current Medications: Active Medications Generic Name Dose Route Start Last Admin Trade Name Freq PRN Reason Stop Dose Admin Acetaminophen 650 mg 06/15/17 17:38 Tylenol - PO Q4H PRN FEVER OR PAIN Al Hydroxide/Mg Hydroxide 30 ml 06/15/17 17:38 Mylanta Oral Suspension - PO Q6H PRN DYSPEPSIA Albuterol Sulfate 2 puff 06/15/17 17:41 Ventolin Hfa Inhaler - IH Q4H PRN ASTHMA Aripiprazole 15 mg 06/17/17 22:00 Abilify PO HS JAMIE Budesonide/Formoterol Fumarate 1 puff 06/15/17 22:00 06/17/17 11:14 Symbicort 80/4.5mcg - IH 1 puff BID JAMIE Administration Buspirone HCl 15 mg 06/17/17 10:00 06/17/17 11:19 Buspar - PO 15 mg DAILY JAMIE Administration Chlordiazepoxide HCl 25 mg 06/16/17 23:00 06/17/17 11:13 Librium - PO 06/17/17 17:01 Not Given [id number] JAMIE Chlordiazepoxide HCl 15 mg 06/17/17 23:00 Librium - PO 06/18/17 17:01 [id number] JAMIE Chlordiazepoxide HCl 25 mg 06/15/17 17:38 Librium - PO 06/18/17 17:37 Q4H PRN WITHDRAWAL(CONT SUBST) Chlordiazepoxide HCl 10 mg 06/18/17 23:00 Librium - PO 06/19/17 17:01 [id number] JAMIE Clotrimazole 1 applic 06/17/17 22:00 Lotrimin 1% Solution - TP BID JAMIE Eucalyptus/Menthol/Phenol/Sorbitol 1 each 06/15/17 17:38 Cepastat Lozenge - MM Q4H PRN SORE THROAT Ferrous Sulfate 325 mg 06/16/17 08:00 06/17/17 08:05 Feosol - PO 325 mg BIDWM JAMIE Administration Guaifenesin 10 ml 06/15/17 17:38 Robitussin Dm - PO Q6H PRN COUGH Hydroxyzine Pamoate 50 mg 06/15/17 17:38 Vistaril - PO Q4H PRN AGITATION Ibuprofen 400 mg 06/15/17 17:38 Motrin - PO Q6H PRN SEVERE PAIN Lidocaine 1 patch 06/15/17 17:45 06/17/17 11:18 Lidoderm Patch - TP 1 patch DAILY JAMIE Administration Loperamide HCl 4 mg 06/15/17 17:38 Imodium - PO Q6H PRN DIARRHEA Magnesium Citrate 300 ml 06/15/17 17:38 Citroma - PO Q48H PRN CONSTIPATION Magnesium Hydroxide 30 ml 06/15/17 17:38 Milk Of Magnesia - PO DAILY PRN CONSTIPATION Methimazole 10 mg 06/15/17 17:45 06/17/17 11:14 Tapazole - PO 10 mg DAILY JAMIE Administration Miscellaneous 1 each 06/15/17 22:00 06/16/17 22:36 Lidoderm Patch Removal MC Not Given DAILY@2200 JAMIE Nicotine 14 mg 06/15/17 17:45 06/17/17 11:19 Nicoderm Patch - TD Not Given DAILY JAMIE Nicotine Polacrilex 2 mg 06/15/17 17:38 Nicorette Gum - BUC Q2H PRN NICOTINE REPLACEMENT RX Nifedipine 60 mg 06/15/17 17:45 06/16/17 10:48 Procardia Xl - PO 60 mg DAILY JAMIE Administration Multivit/Folic Acid/Iron 1 tab 06/16/17 10:00 06/17/17 11:13 Vitamins (Sjr) - PO 1 tab DAILY JAMIE Administration Pseudoephedrine/Triprolidine 1 combo 06/15/17 17:38 Actifed - PO TID PRN NASAL CONGESTION Thiamine HCl 100 mg 06/15/17 22:00 06/16/17 22:34 Vitamin B1 - PO 100 mg HS JAMIE Administration Tolnaftate 1 applic 06/15/17 22:00 06/17/17 11:13 Tinactin 1% Cream - TP 1 applic BID JAMIE Administration Mental Status Exam - Mental Status Exam Alert and Oriented to: Person Cognitive Function: Fair Patient Appearance: Well Groomed Mood: Anxious Affect: Mood Congruent Patient Behavior: Cooperative Speech Pattern: Appropriate Voice Loudness: Mildly Loud Thought Process: Goal Oriented Thought Disorder: Being Controlled Hallucinations: Denies Suicidal Ideation: Denies Homicidal Ideation: Denies Insight/Judgement: Fair Sleep: Difficulty falling asleep Appetite: Fair Muscle strength/Tone: Normal Gait/Station: Normal Additional Comments: Abilify 15mg po qhs Psychiatric Treatment Plan - Problem List (1) Substance induced mood disorder Current Visit: Yes (2) Alcohol dependence with uncomplicated withdrawal Current Visit: Yes (3) Cocaine dependence, uncomplicated Current Visit: Yes (4) Drug-induced mood disorder Current Visit: No (5) Cocaine dependence Current Visit: No Qualifiers: Substance use status: uncomplicated (6) Nicotine dependence Current Visit: No Qualifiers: Nicotine product type: cigarettes Substance use status: uncomplicated Qualified Code(s): F17.210 - Nicotine dependence, cigarettes, uncomplicated Initial treatment plan: Abilify 15mg po qhs
[2017-06-17] MEDS: chlordiazePOXIDE 5 MG CAPSULE PO SCH (22:36)
[2017-06-17] MEDS: THIAMINE HCL 100 MG TABLET (FP) PO SCH (22:36)
[2017-06-17] MEDS: ARIPiprazole 15 MG TABLET PO SCH (22:36)
[2017-06-17] MEDS: LIDOCAINE PATCH REMOVAL MC SCH (22:39)
[2017-06-17] MEDS: CLOTRIMAZOLE 1%TOPICAL SOLUTION 30 ML BOTTLE TP SCH (22:39)
[2017-06-18] MEDS: chlordiazePOXIDE 5 MG CAPSULE PO SCH ×3 (06:06→17:28)
[2017-06-18] MEDS: FERROUS SO4 325 MG TABLET (FP) PO SCH ×2 (08:22→17:29)
[2017-06-18] MEDS: NIFEdipine E.R 60 MG TABLET (UD) PO SCH (10:28)
[2017-06-18] MEDS: BUDESONIDE/FORMETEROL FUMARATE 80/4.5 mcg INHALER IH SCH ×2 (10:28→22:27)
[2017-06-18] MEDS: CLOTRIMAZOLE 1%TOPICAL SOLUTION 30 ML BOTTLE TP SCH ×2 (10:28→22:27)
[2017-06-18] MEDS: PRENATAL VITAMINS W/ FOLIC ACID TABLET (FP) PO SCH (10:28)
[2017-06-18] MEDS: TOLNAFTATE 1% CREAM 15 GM TUBE TP SCH ×2 (10:29→22:26)
[2017-06-18] MEDS: NICOTINE 14 MG/24 HOURS TOPICAL PATCH TD SCH (10:32)
[2017-06-18] MEDS: LIDOCAINE 5% TOPICAL PATCH TP SCH (10:32)
[2017-06-18] MEDS: METHOCARBAMOL 750 MG TABLET PO SCH (11:16)
[2017-06-18] MEDS: METHIMAZOLE 10 MG TABLET (FP) PO SCH (11:16)
--- NOTE | 2017-06-18 15:37 | PN ---
[facility] Progress Note (SOAP) Subjective: Anxious, agitated, c/o chronic sciatica and pain in knees requesting flexeril stating she takes flexeril bid at home (as per chart review, patient was on robaxin 750mg PO daily in the past, patient aware flexeril is contraindicated due to her thyroid disease). Objective: 06/18/17 15:34 Last Vital Signs Temp Pulse Resp BP Pulse Ox 97.0 F L 84 18 119/80 06/18/17 14:09 06/18/17 14:09 06/18/17 14:09 06/18/17 14:09 Laboratory Tests 06/15/17 06/16/17 06/16/17 18:19 07:40 07:40 WBC 4.0 D RBC 4.29 Hgb 10.8 Hct 34.7 MCV 81.0 MCH 25.2 L MCHC 31.1 L RDW 15.2 D Plt Count 237 MPV 9.6 Sodium Potassium Chloride Carbon Dioxide Anion Gap BUN Creatinine Creat Clearance w eGFR Random Glucose Calcium Total Bilirubin AST ALT Alkaline Phosphatase Total Protein Albumin Urine Color Dkyellow Urine Appearance Slcloudy Urine pH 6.0 Ur Specific [place] 1.030 Urine Protein 1+ H Urine Glucose (UA) Negative Urine Ketones Negative Urine Blood 1+ H Urine Nitrite Negative Urine Bilirubin Negative Urine Urobilinogen 4.0 e.u/dl H Ur Leukocyte Esterase Negative Urine WBC (Auto) 1 Urine RBC (Auto) 5 Ur Epithelial Cells Many Urine Bacteria Rare Urine Mucus Few RPR Titer HIV 1&2 Antibody Screen Negative HIV P24 Antigen Negative 06/16/17 06/16/17 07:40 07:40 WBC RBC Hgb Hct MCV MCH MCHC RDW Plt Count MPV Sodium 141 Potassium 3.8 Chloride 108 H Carbon Dioxide 27 Anion Gap 6 L BUN 10 Creatinine 0.7 D Creat Clearance w eGFR > 60 Random Glucose 88 D Calcium 7.9 L Total Bilirubin 0.4 AST 6 L D ALT 12 D Alkaline Phosphatase 56 Total Protein 6.3 L Albumin 3.2 L Urine Color Urine Appearance Urine pH Ur Specific [place] Urine Protein Urine Glucose (UA) Urine Ketones Urine Blood Urine Nitrite Urine Bilirubin Urine Urobilinogen Ur Leukocyte Esterase Urine WBC (Auto) Urine RBC (Auto) Ur Epithelial Cells Urine Bacteria Urine Mucus RPR Titer Nonreactive HIV 1&2 Antibody Screen HIV P24 Antigen Labs noted: abnormal UA Assessment: 06/18/17 15:35 Withdrawal symptoms Noted with abnormal UA Plan: Continue detox Robaxin 750mg PO daily for sciatica Abnormal UA: encouraged to drink lots of water, repeat UA
[2017-06-18] MEDS: THIAMINE HCL 100 MG TABLET (FP) PO SCH (22:26)
[2017-06-18] MEDS: chlordiazePOXIDE HCL 10 MG CAPSULE PO SCH (22:26)
[2017-06-18] MEDS: ARIPiprazole 15 MG TABLET PO SCH (22:26)
[2017-06-18] MEDS: LIDOCAINE PATCH REMOVAL MC SCH (22:28)
[2017-06-19] MEDS: chlordiazePOXIDE HCL 10 MG CAPSULE PO SCH (06:05)
[2017-06-19 06:06] VITALS: BP 124/83; PULSE 77; TEMP 97.9
[2017-06-19] MEDS: FERROUS SO4 325 MG TABLET (FP) PO SCH (07:38)
--- NOTE | 2017-06-19 08:40 | DS ---
[facility] Detox Discharge Summary Admission Date: 06/15/17 Discharge Date: 06/19/17 - History Present History: Alcohol Dependence, Cocaine Dependence - Physical Exam Results Vital Signs: Vital Signs Temperature 97.9 F 06/19/17 06:05 Pulse Rate 77 06/19/17 06:05 Respiratory Rate 18 06/19/17 06:05 Blood Pressure 124/83 06/19/17 06:05 O2 Sat by Pulse Oximetry (%) - Treatment Hospital Course: Detox Protocol Followed, Detoxed Safely, Responded well, Discharged Condition Good - Medication Discharge Medications: Ambulatory Orders Loratadine [Claritin -] 10 mg PO DAILY 10/28/16 Methimazole [Tapazole -] 10 mg PO DAILY 10/28/16 Methocarbamol [Robaxin -] 750 mg PO HS 10/28/16 Albuterol Sulfate Inhaler - [Ventolin Hfa Inhaler -] 2 inh PO Q4H PRN 02/26/17 Budesonide/Formeterol Fumarate [SYMBICORT 80/4.5mcg -] 1 inh PO BID 02/26/17 Nifedipine ER [Procardia Xl -] 60 mg PO DAILY 02/26/17 Ascorbic Acid [Vitamin C -] 500 mg PO DAILY 06/15/17 Ciclopirox 6.6 ml TP TID 06/15/17 Cyanocobalamin [Vitamin B12 -] 1,000 mcg PO DAILY 06/15/17 Ferrous Sulfate [Feosol] 325 mg PO DAILY 06/15/17 Gabapentin [Neurontin -] 300 mg PO Q8H 06/15/17 Buspirone HCl [Buspar -] 15 mg PO DAILY #30 tablet 06/16/17 - Diagnosis (1) Onychomycosis Current Visit: Yes Status: Chronic (2) Alcohol dependence with uncomplicated withdrawal Current Visit: Yes Status: Chronic (3) Cocaine dependence, uncomplicated Current Visit: Yes Status: Chronic (4) Cocaine dependence Current Visit: No Status: Chronic Qualifiers: Substance use status: uncomplicated (5) Asthma Current Visit: No Status: Chronic Qualifiers: Asthma severity: mild intermittent (6) HTN (hypertension) Current Visit: No Status: Chronic Qualifiers: Hypertension type: essential hypertension Qualified Code(s): I10 - Essential (primary) hypertension (7) Nicotine dependence Current Visit: Yes Status: Chronic Qualifiers: Nicotine product type: cigarettes Substance use status: uncomplicated Qualified Code(s): F17.210 - Nicotine dependence, cigarettes, uncomplicated - AMA Did Patient Leave Against Medical Advice: No
[2017-06-19] MEDS: METHOCARBAMOL 750 MG TABLET PO SCH (09:08)
[2017-06-19] MEDS: METHIMAZOLE 10 MG TABLET (FP) PO SCH (09:08)
[2017-06-19] MEDS: NIFEdipine E.R 60 MG TABLET (UD) PO SCH (09:09)
[2017-06-19] MEDS: TOLNAFTATE 1% CREAM 15 GM TUBE TP SCH (09:11)
[2017-06-19] MEDS: BUDESONIDE/FORMETEROL FUMARATE 80/4.5 mcg INHALER IH SCH (09:12)
== END 2017-06-19 09:48 | disposition home or self-care (01) | DRG 774 ==
LOC: YASAS 14:39 → Y6N 17:08
PROVIDERS: ADMIT Internal Medicine; ATTEND Internal Medicine
PROC: HZ2ZZZZ Detoxification Services for Substance Abuse Treatment (ICD-10-PCS; principal; 2017-06-15)
DX: F10.230 Alcohol dependence with withdrawal, uncomplicated (principal); F14.20 Cocaine dependence, uncomplicated; F12.20 Cannabis dependence, uncomplicated; F32.9 Major depressive disorder, single episode, unspecified; I10 Essential (primary) hypertension; J45.909 Unspecified asthma, uncomplicated; B35.1 Tinea unguium; D50.9 Iron deficiency anemia, unspecified; E05.90 Thyrotoxicosis, unspecified without thyrotoxic crisis or storm; R82.90 Unspecified abnormal findings in urine
CPT/HCPCS: 36415; 80053; 81003; 81015; 85027; 86593; 87389; 93005; 93010

== ENCOUNTER 2017-10-21 14:38 | Inpatient (IN) | payer OTHER ==
[2017-10-21 16:40] VITALS: BMI 24.3
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
[2017-10-21] MEDS ORDERED: ALBUTEROL SO4 18 GM HFA INHALER IH PRN (20:02)
[2017-10-21] MEDS ORDERED: LOPERAMIDE HCL 2 MG CAPSULE PO PRN (20:05)
[2017-10-21] MEDS ORDERED: IBUPROFEN 400 MG TABLET (FP) PO PRN (20:05)
[2017-10-21] MEDS ORDERED: MAGNESIUM CITRATE 300 ML BOTTLE PO PRN (20:05)
[2017-10-21] MEDS ORDERED: guaiFENesin/D-METHORPHAN HB 10 ML UNIT-DOSE CUPS PO PRN (20:05)
[2017-10-21] MEDS ORDERED: MENTHOL/PHENOL 1 EACH UD MM PRN (20:05)
[2017-10-21] MEDS ORDERED: hydrOXYzine PAMOATE 50 MG CAPSULE (FP) PO PRN (20:05)
[2017-10-21] MEDS ORDERED: ACETAMINOPHEN 325 MG TABLET (FP) PO PRN (20:05)
[2017-10-21] MEDS ORDERED: NICOTINE POLACRILEX 2 MG GUM BUC PRN (20:05)
[2017-10-21] MEDS ORDERED: P-EPHED 60MG/TRIPROLIDI 2.5MG TABLET PO PRN (20:05)
[2017-10-21] MEDS ORDERED: MAG HYDROX/AL HYDROX/SIMETH 30 ML UNIT-DOSE CUP PO PRN (20:05)
[2017-10-21] MEDS ORDERED: MAGNESIUM HYDROX 2400MG/30ML ORAL SUSPENSION 30 ML CUP PO PRN (20:05)
[2017-10-21] MEDS: TOLNAFTATE 1% CREAM 15 GM TUBE TP SCH (21:37)
[2017-10-21] MEDS: BUDESONIDE/FORMETEROL FUMARATE 80/4.5 mcg INHALER IH SCH (21:38)
[2017-10-21] MEDS: AMOXICILLIN 500 MG CAPSULE (FP) PO SCH (21:39)
[2017-10-21] MEDS: NAPROXEN 500 MG TABLET (FP) PO SCH (21:44)
[2017-10-21] MEDS: THIAMINE HCL 100 MG TABLET (FP) PO SCH (21:44)
[2017-10-21] MEDS ORDERED: BUDESONIDE/FORMETEROL FUMARATE 80/4.5 mcg INHALER IH SCH (22:00)
[2017-10-21] MEDS ORDERED: MELATONIN 5 MG TABLETS PO PRN (22:00)
[2017-10-21] MEDS ORDERED: AMOXICILLIN 500 MG CAPSULE (FP) PO SCH (22:00)
[2017-10-21] MEDS ORDERED: BACITRACIN 15 GM TUBE TOPICAL OINTMENT TP SCH (22:00)
[2017-10-21 23:06] LABS: URINE APPEARANCE CLOUDY; URINE BILIRUBIN NEGATIVE (<2.0 mg/dL); URINE BLOOD NEGATIVE (NEGATIVE); URINE COLOR YELLOW; URINE GLUCOSE (UA) NEGATIVE (NEGATIVE); URINE KETONE NEGATIVE (NEGATIVE); URINE LEUK ESTERASE NEGATIVE (NEGATIVE); URINE NITRITE NEGATIVE (NEGATIVE); URINE PROTEIN NEGATIVE (NEGATIVE); URINE UROBILINOGEN 4.0 E.U/dl mg/dL (0.2-1.0)
[2017-10-21] MEDS ORDERED: PT OWN MED DRAWER 7, Y5N ONE (23:50)
[2017-10-22] MEDS: AMOXICILLIN 500 MG CAPSULE (FP) PO SCH ×3 (06:31→21:15)
[2017-10-22] MEDS ORDERED: PT OWN MED DRAWER 7, Y5N ONE (08:57)
[2017-10-22] MEDS: NAPROXEN 500 MG TABLET (FP) PO SCH ×2 (10:06→21:15)
[2017-10-22] MEDS: BACITRACIN 0.9 GM PACKET TP SCH ×2 (10:07→21:15)
[2017-10-22] MEDS: PRENATAL VITAMINS W/ FOLIC ACID TABLET (FP) PO SCH (10:07)
[2017-10-22] MEDS: NIFEdipine E.R 60 MG TABLET (UD) PO SCH (10:08)
[2017-10-22] MEDS: NICOTINE 14 MG/24 HOURS TOPICAL PATCH TD SCH (10:08)
[2017-10-22] MEDS: METHIMAZOLE 10 MG TABLET (FP) PO SCH (10:08)
[2017-10-22] MEDS: BUDESONIDE/FORMETEROL FUMARATE 80/4.5 mcg INHALER IH SCH ×2 (10:09→21:16)
[2017-10-22] MEDS: TOLNAFTATE 1% CREAM 15 GM TUBE TP SCH ×2 (10:09→21:43)
[2017-10-22 13:58] LABS: HEMATOCRIT 32.4 % (32.4-45.2); HEMOGLOBIN 10.5 GM/dL (10.7-15.3); MCH 25.8 pg (25.7-33.7); MCHC 32.6 g/dl (32.0-36.0); MEAN CELL VOLUME 79.3 fl (80-96); MEAN PLT VOLUME 9.5 fl (7.5-11.1); PLATELET COUNT 233 K/MM3 (134-434); RBC 4.08 M/mm3 (3.60-5.2); RDW 16.9 % (11.6-15.6); WHITE BLOOD COUNT 3.9 K/mm3 (4.0-10.0)
[2017-10-22 14:40] LABS: ALBUMIN 3.3 g/dl (3.4-5.0); ANION GAP 8 (8-16); BLOOD UREA NITROGEN 13 mg/dL (7-18); CALCIUM 8.4 mg/dL (8.5-10.1); CHLORIDE 108 mmol/L (98-107); CO2 25 mmol/L (21-32); CREATININE 0.8 mg/dL (0.55-1.02); GLUCOSE,RANDOM 85 mg/dL (74-106); POTASSIUM 4.6 mmol/L (3.5-5.1); SGOT/AST 10 U/L (15-37); SODIUM 141 mmol/L (136-145)
[2017-10-22 14:42] LABS: ALK PHOS 55 U/L (45-117); BILIRUBIN,TOTAL 0.4 mg/dL (0.2-1.0); SGPT/ALT 10 U/L (12-78); TOT PROT 6.4 g/dl (6.4-8.2)
[2017-10-22] MEDS: THIAMINE HCL 100 MG TABLET (FP) PO SCH (21:15)
[2017-10-23] MEDS: AMOXICILLIN 500 MG CAPSULE (FP) PO SCH ×3 (06:35→21:17)
[2017-10-23 07:01] VITALS: TEMP 98.2
[2017-10-23] MEDS ORDERED: PT OWN MED DRAWER 7, Y5N ONE (08:33)
[2017-10-23] MEDS: PRENATAL VITAMINS W/ FOLIC ACID TABLET (FP) PO SCH (09:21)
[2017-10-23] MEDS: NAPROXEN 500 MG TABLET (FP) PO SCH ×2 (09:21→21:17)
[2017-10-23] MEDS: METHIMAZOLE 10 MG TABLET (FP) PO SCH (09:21)
[2017-10-23] MEDS: NIFEdipine E.R 60 MG TABLET (UD) PO SCH (09:21)
[2017-10-23] MEDS: BUDESONIDE/FORMETEROL FUMARATE 80/4.5 mcg INHALER IH SCH ×2 (09:22→21:18)
[2017-10-23] MEDS: NICOTINE 14 MG/24 HOURS TOPICAL PATCH TD SCH (09:22)
[2017-10-23] MEDS: BACITRACIN 0.9 GM PACKET TP SCH ×2 (09:22→21:17)
[2017-10-23] MEDS: TOLNAFTATE 1% CREAM 15 GM TUBE TP SCH ×2 (09:22→21:18)
--- NOTE | 2017-10-23 09:51 | EKG ---
Test Reason : Blood Pressure : / mmHG Vent. Rate : 085 BPM Atrial Rate : 085 BPM P-R Int : 174 ms QRS Dur : 094 ms QT Int : 382 ms P-R-T Axes : 065 020 037 degrees QTc Int : 454 ms NORMAL SINUS RHYTHM NORMAL ECG WHEN COMPARED WITH ECG OF 15-JUN-2017 18:28, NO SIGNIFICANT CHANGE WAS FOUND Confirmed by ZANE GUPTA MD ([id number]) on 10/23/2017 9:51:38 AM Referred By: Confirmed By:ZANE GUPTA MD
--- NOTE | 2017-10-23 12:02 | PN ---
[facility] Progress Note Note: Patient presents with low back pain and body aches. Vital Signs Temperature 98.2 F 10/23/17 07:00 Pulse Rate 80 10/23/17 09:00 Respiratory Rate 18 10/23/17 07:00 Blood Pressure 126/74 10/23/17 09:00 O2 Sat by Pulse Oximetry (%) Subj: Patient c/o low back pain, level 9/10, sharp and constant. Non-radiating. Denies any recent injuries. Obj: general: alert and oriented x 3. Skin: warm and dry MS: + L spine tenderness, + Full ROM of all extremities A/P: LBP Will continue Naprosyn as ordered add Lidocaine Patch daily to low back area continue to monitor
[2017-10-23] MEDS ORDERED: LIDOCAINE 5% TOPICAL PATCH TP ONE (12:30)
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
[2017-10-23] MEDS: THIAMINE HCL 100 MG TABLET (FP) PO SCH (21:17)
[2017-10-23] MEDS ORDERED: LIDOCAINE PATCH REMOVAL MC SCH ×2 (22:00)
[2017-10-24] MEDS: AMOXICILLIN 500 MG CAPSULE (FP) PO SCH (06:41)
--- NOTE | 2017-10-24 09:26 | PN ---
[facility] Progress Note Note: received nurse call that the patient wants to leave the rehab facility patient has hypertension skin lesion and chronic back pain prescription e sent to pharmacy
[2017-10-24 09:38] VITALS: BP 127/81; PULSE 82
[2017-10-24] MEDS: NAPROXEN 500 MG TABLET (FP) PO SCH (09:45)
[2017-10-24] MEDS: BUDESONIDE/FORMETEROL FUMARATE 80/4.5 mcg INHALER IH SCH (09:45)
[2017-10-24] MEDS: PRENATAL VITAMINS W/ FOLIC ACID TABLET (FP) PO SCH (09:45)
[2017-10-24] MEDS: NIFEdipine E.R 60 MG TABLET (UD) PO SCH (09:45)
[2017-10-24] MEDS: BACITRACIN 0.9 GM PACKET TP SCH (09:46)
[2017-10-24] MEDS: TOLNAFTATE 1% CREAM 15 GM TUBE TP SCH (09:47)
[2017-10-24] MEDS: METHIMAZOLE 10 MG TABLET (FP) PO SCH (09:47)
[2017-10-24] MEDS: NICOTINE 14 MG/24 HOURS TOPICAL PATCH TD SCH (09:47)
[2017-10-24] MEDS ORDERED: LIDOCAINE 5% TOPICAL PATCH TP SCH (10:00)
== END 2017-10-24 10:00 | disposition left against medical advice (07) | DRG 770 ==
LOC: YASAS 14:38 → Y3E 19:25
PROVIDERS: ADMIT Psychiatry & Neurology Psychiatry; ATTEND Psychiatry & Neurology Psychiatry
PROC: HZ42ZZZ Group Counseling for Substance Abuse Treatment, Cognitive-Behavioral (ICD-10-PCS; principal; 2017-10-21)
DX: F10.230 Alcohol dependence with withdrawal, uncomplicated (principal); F14.20 Cocaine dependence, uncomplicated; F17.210 Nicotine dependence, cigarettes, uncomplicated; F31.9 Bipolar disorder, unspecified; I10 Essential (primary) hypertension; D50.9 Iron deficiency anemia, unspecified; D51.9 Vitamin B12 deficiency anemia, unspecified; N64.9 Disorder of breast, unspecified; M54.5 Low back pain; K04.7 Periapical abscess without sinus; B35.1 Tinea unguium; E05.80 Other thyrotoxicosis without thyrotoxic crisis or storm
CPT/HCPCS: 36415; 80053; 81003; 85027; 86593; 93005; 93010

== ENCOUNTER 2018-11-07 16:39 | Inpatient (IN) | payer OTHER | END 2018-11-20 08:55 | disposition home or self-care (01) | LOC: Y3E 11-17 08:13 → YASAS 16:39 → Y3E 21:12 ==

== ENCOUNTER 2019-04-17 14:41 | Inpatient (IN) | payer OTHER ==
[2019-04-17 19:26] VITALS: BMI 24.5
--- NOTE | 2019-04-17 22:54 | HP ---
CIWA Score Nausea/Vomitin-Mild Nausea/No Vomiting Muscle Tremors: 3 Anxiety: 3 Agitation: 3 Paroxysmal Sweats: 3 Orientation: 2-Disoriented Date<2 days Tacttile Disturbances: 0-None Auditory Disturbances: 0-None Visual Disturbances: 0-None Headache: 0-None Present CIWA-Ar Total Score: 15 - Admission Criteria OASAS Guidelines: Admission for Medically Managed Detox: Requires at least one of the followin. CIWA greater than 12 2. Seizures within the past 24 hours 3. Delirium tremens within the past 24 hours 4. Hallucinations within the past 24 hours 5. Acute intervention needed for co occurring medical disorder 6. Acute intervention needed for co occurring psychiatric disorder 7. Severe withdrawal that cannot be handled at a lower level of care (continued vomiting, continued diarrhea, abnormal vital signs) requiring intravenous medication and/or fluids 8. Admitting History and Physical - Past Medical History ...LMP: 11/03/18 - Smoking History Smoking history: Current every day smoker Have you smoked in the past 12 months: Yes Aproximately how many cigarettes per day: 4 - Alcohol/Substance Use Hx Alcohol Use: Yes Admission ROS [facility] Chief Complaint: Alcohol withdrawal symptoms Allergies/Adverse Reactions: Allergies Allergy/AdvReac Type Severity Reaction Status Date / Time No Known Allergies Allergy Verified 04/17/19 19:14 History of Present Illness: 48 years old female with a long history of alcohol dependence is seeking admission to detox. Patient has been in previous detox and reports 8 years of sobriety. She has medical history of hypertension, asthma, anemia, positive PPD , hyperthyroidism and psych. history of bipolar disorder, anxiety and depression. She denies suicidal ideation at this time Exam Limitations: No Limitations - Ebola screening Have you traveled outside of the country in the last 21 days: No (N) Have you had contact with anyone from an Ebola affected area: No Do you have a fever: No - Review of Systems Constitutional: Chills, Malaise, Night Sweats, Changes in sleep EENT: reports: No Symptoms Reported Respiratory: reports: No Symptoms reported Cardiac: reports: No Symptoms Reported GI: reports: Nausea, Abdominal cramping : reports: No Symptoms Reported Musculoskeletal: reports: Back Pain, Joint Pain, Muscle Pain Integumentary: reports: Dryness, Flushing Neuro: reports: Tremors Endocrine: reports: No Symptoms Reported Hematology: reports: No Symptoms Reported Psychiatric: reports: Judgement Intact, Mood/Affect Appropiate, Orientated x3, Depressed Other Systems: Reviewed and Negative Patient History - Patient Medical History Hx Anemia: Yes (Iron-Deficiancy;and B-12 deficiency takes MVI.) Hx Asthma: Yes Hx Chronic Obstructive Pulmonary Disease (COPD): No Hx Cancer: No Hx Cardiac Disorders: No Hx Congestive Heart Failure: No Hx Hypertension: Yes Hx Hypercholesterolemia: No Hx Pacemaker: No HX Cerebrovascular Accident: No Hx Seizures: No Hx Dementia: No Hx Diabetes: No Hx Gastrointestinal Disorders: No Hx Liver Disease: No Hx Genitourinary Disorders: No Hx Sexually Transmitted Disorders: No Hx Renal Disease (ESRD): No Hx Thyroid Disease: Yes (HYPERTHYROIDISM; On med.) Hx Human Immunodeficiency Virus (HIV): No Hx Hepatitis C: No Hx Depression: Yes (Not on medication) Hx Suicide Attempt: No Hx Bipolar Disorder: Yes (On meds.) Hx Schizophrenia: No - Patient Surgical History Past Surgical History: No Hx Neurologic Surgery: No Hx Cataract Extraction: No Hx Cardiac Surgery: No Hx Lung Surgery: No Hx Breast Surgery: No Hx Breast Biopsy: No Hx Abdominal Surgery: No Hx Appendectomy: No Hx Cholecystectomy: No Hx Genitourinary Surgery: No Hx Section: No Hx Orthopedic Surgery: No Hx Hysterectomy: No Anesthesia Reaction: No - PPD History Previous Implant?: No (PPD POSITIVE. TX with INH) PPD to be Administered?: No - Reproductive History Patient is a Female of Child Bearing Age (11 -55 yrs old): No Last Menstrual Period: 04/12/19 - Smoking Cessation Smoking history: Current every day smoker Have you smoked in the past 12 months: Yes Aproximately how many cigarettes per day: 5 Cigars Per Day: 0 Hx Chewing Tobacco Use: No Initiated information on smoking cessation: Yes 'Breaking Loose' booklet given: 04/17/19 - Substances abused Alcohol Other (specify): LIQUOR Substance route: Oral Frequency: Daily Amount used: 10 nips of vodka, 2 12oz six packs Age of first use: 15 Date of last use: 04/17/19 Crack Substance route: Smoking Frequency: Daily Amount used: $500 per day Age of first use: 21 Date of last use: 04/17/19 Admission Physical Exam [facility] - Vital Signs Vital Signs: Vital Signs - 24 hr 04/17/19 19:15 Temperature 97.1 F L Pulse Rate 87 Respiratory 18 Rate Blood Pressure 178/101 H - Physical General Appearance: Yes: Moderate Distress, Tremorous, Anxious HEENTM: Yes: Within Normal Limits Respiratory: Yes: Lungs Clear, Normal Breath Sounds, No Respiratory Distress Neck: Yes: Supple Breast: Yes: Breast Exam Deferred Cardiology: Yes: Regular Rhythm, Regular Rate Abdominal: Yes: Normal Bowel Sounds Genitourinary: Yes: Within Normal Limits Back: Yes: Normal Inspection Musculoskeletal: Yes: Within Normal Limits Extremities: Yes: Tremors Neurological: Yes: Within Normal Limits Integumentary: Yes: Warm Lymphatic: Yes: Within Normal Limits - Diagnostic (1) Alcohol dependence with uncomplicated withdrawal Current Visit: No Status: Chronic (2) Anemia Current Visit: No Status: Chronic Qualifiers: Anemia type: B12 deficiency (3) Asthma Current Visit: No Status: Chronic Qualifiers: Asthma severity: mild Asthma persistence: intermittent Asthma complication type: unspecified Qualified Code(s): J45.20 - Mild intermittent asthma, uncomplicated (4) Cocaine dependence Current Visit: No Status: Chronic Qualifiers: Substance use status: uncomplicated Qualified Code(s): F14.20 - Cocaine dependence, uncomplicated (5) Depression Current Visit: No Status: Chronic Qualifiers: Depression Type: unspecified Qualified Code(s): F32.9 - Major depressive disorder, single episode, unspecified (6) HTN (hypertension) Current Visit: No Status: Chronic Qualifiers: Hypertension type: essential hypertension Qualified Code(s): I10 - Essential (primary) hypertension (7) History of positive PPD Current Visit: No Status: Chronic (8) Hyperthyroidism Current Visit: No Status: Chronic (9) Nicotine dependence Current Visit: No Status: Chronic Qualifiers: Nicotine product type: cigarettes Substance use status: uncomplicated Qualified Code(s): F17.210 - Nicotine dependence, cigarettes, uncomplicated Cleared for Admission [facility] - Detox or Rehab S Level of Care: Medically Managed Detox Regimen/Protocol: Librium Breathalyzer - Breathalyzer Breathalyzer: 0 POC Urine test - Control test control: Yes Urine Drug Screen - Test Device Lot number: [id number] Expiration date: 11/21/20 - Control Is test valid?: Yes - Results Drug screen NEGATIVE: No Urine drug screen results: WINSOME-Cocaine Inpatient Rehab Admission - Rehab Decision to Admit Inpatient rehab admission?: No
[2019-04-17] MEDS ORDERED: MAGNESIUM CITRATE 300 ML BOTTLE PO PRN (23:06)
[2019-04-17] MEDS ORDERED: MELATONIN 5 MG TABLETS PO PRN (23:06)
[2019-04-17] MEDS ORDERED: IBUPROFEN 400 MG TABLET (FP) PO PRN (23:06)
[2019-04-17] MEDS ORDERED: hydrOXYzine PAMOATE 25 MG CAPSULE (FP) PO PRN (23:06)
[2019-04-17] MEDS ORDERED: chlordiazePOXIDE HCL 25 MG CAPSULE PO PRN (23:06)
[2019-04-17] MEDS ORDERED: MAGNESIUM HYDROX 2400MG/30ML ORAL SUSPENSION 30 ML CUP PO PRN (23:06)
[2019-04-17] MEDS ORDERED: NICOTINE POLACRILEX 2 MG GUM BUC PRN (23:06)
[2019-04-17] MEDS ORDERED: ACETAMINOPHEN 325 MG TABLET (FP) PO PRN ×2 (23:06)
[2019-04-17] MEDS ORDERED: ALBUTEROL SO4 8 GM HFA INHALER IH PRN (23:08)
[2019-04-18] MEDS: chlordiazePOXIDE HCL 25 MG CAPSULE PO SCH ×5 (00:40→23:00)
[2019-04-18] MEDS: NICOTINE 14 MG/24 HOURS TOPICAL PATCH TD SCH (10:48)
[2019-04-18] MEDS: PRENATAL VITAMINS W/ FOLIC ACID TABLET (FP) PO SCH (10:48)
[2019-04-18] MEDS: LORATADINE 10 MG TABLET PO SCH (10:50)
[2019-04-18] MEDS: NIFEdipine E.R 60 MG TABLET (UD) PO SCH (10:50)
[2019-04-18] MEDS: BUDESONIDE/FORMETEROL FUMARATE 80/4.5 mcg INHALER IH SCH ×2 (10:51→23:00)
[2019-04-18] MEDS: TOLNAFTATE 1% CREAM 15 GM TUBE TP SCH ×2 (10:51→23:00)
--- NOTE | 2019-04-18 11:51 | CONSULT ---
[facility] Psychiatric Consult - Data Date of interview: 04/18/19 Admission source: [facility] Identifying data: Readmission to [facility] for this 48 y/o AA female self- referred for detoxification (TIFF issues : alcohol + cocaine + nicotine). Interviewed at [address] [place] [address]. Patient is , a mother of seven, homeless, unemployed and supported on welfare. Substance Abuse History: Discussed in this session. Detailsi in current [facility] report as follows : Smoking history: Current every day smoker. Have you smoked in the past 12 months: Yes. Aproximately how many cigarettes per day: 5. Cigars Per Day: 0. Hx Chewing Tobacco Use: No. Initiated information on smoking cessation: Yes. 'Breaking Loose' booklet given: 04/17/19. - Substances abused. Alcohol. Other (specify): LIQUOR. Substance route: Oral. Frequency: Daily. Amount used: 10 nips of vodka, 2 12oz six packs. Age of first use: 15. Date of last use: 04/17/19. Crack. Substance route: Smoking. Frequency: Daily. Amount used: $500 per day. Age of first use: 21. Date of last use: 04/17/19 Medical History: Medical profile is remarkable for iron-deficiency anemia, bronchial asthma, hypertension, hyperthyroidism and history of positive PPD. No allergies reported. Psychiatric History: Diagnosed with PTSD and Bipolar Disorder. History of one psychiatric hospitalization, years ago, at [facility]. Ms Lehman admits to having no contact with psychiatric OPD care providers. "My medical doctor gives me scripts for buspar 15 mg daily." She declares that she is " not interested " in any psychotropic medications other than buspirone + drugs necessary for detoxification. Patient denies history of suicide attempts. Physical/Sexual Abuse/Trauma History: No information. Patient declines discussion of this domain. Additional Comment: Urine drug screen results: WINSOME-Cocaine. Noted. Mental Status Exam - Mental Status Exam Alert and Oriented to: Time, Place, Person Cognitive Function: Good Patient Appearance: Well Groomed (tall stature) Mood: Withdrawn, Irritable Affect: Mood Congruent, Normal Range Patient Behavior: Fatigued, Appropriate, Cooperative (but eager to shorten interview) Speech Pattern: Clear, Appropriate Voice Loudness: Normal Thought Process: Goal Oriented Thought Disorder: Not Present Hallucinations: Denies Suicidal Ideation: Denies Homicidal Ideation: Denies Insight/Judgement: Poor Sleep: Fair Appetite: Good Gait/Station: Normal Psychiatric Findings - Problem List ([place] 1, 2,3) (1) Alcohol dependence with uncomplicated withdrawal Current Visit: Yes Status: Acute (2) Cocaine dependence Current Visit: Yes Status: Chronic Qualifiers: Substance use status: uncomplicated Qualified Code(s): F14.20 - Cocaine dependence, uncomplicated (3) Nicotine dependence Current Visit: Yes Status: Chronic Qualifiers: Nicotine product type: cigarettes Substance use status: uncomplicated Qualified Code(s): F17.210 - Nicotine dependence, cigarettes, uncomplicated (4) Substance induced mood disorder Current Visit: Yes Status: Chronic (5) History of bipolar disorder Current Visit: Yes Status: Chronic (6) History of posttraumatic stress disorder (PTSD) Current Visit: Yes Status: Chronic (7) Non-compliance Current Visit: Yes Status: Chronic - Initial Treatment Plan Initial Treatment Plan: Psychoeducation. Sleep hygiene. Detoxification. Buspar 15 mg po daily. Side effects/benefits discussed with the patient. Lehman agrees with this plan of care. Observation.
[2019-04-18 12:29] LABS: ALBUMIN 2.8 g/dl (3.4-5.0); BILIRUBIN,TOTAL 0.3 mg/dL (0.2-1); BLOOD UREA NITROGEN 11.4 mg/dL (7-18); CALCIUM 8.5 mg/dL (8.5-10.1); CREATININE 0.8 mg/dL (0.55-1.3); POTASSIUM 3.9 mmol/L (3.5-5.1)
[2019-04-18 12:31] LABS: HEMATOCRIT 34.4 % (32.4-45.2); MCH 25.8 pg (25.7-33.7); MCHC 31.8 g/dl (32.0-36.0); MEAN CELL VOLUME 81.1 fl (80-96); MEAN PLT VOLUME 9.6 fl (7.5-11.1); PLATELET COUNT 230 K/MM3 (134-434); RBC 4.25 M/mm3 (3.60-5.2); RDW 16.5 % (11.6-15.6)
[2019-04-18] MEDS: CYANOCOBALAMIN 1,000 MCG TABLET (FP) PO SCH (12:48)
[2019-04-18] MEDS: METHIMAZOLE 10 MG TABLET (FP) PO SCH (12:49)
--- NOTE | 2019-04-18 18:10 | PN ---
[facility] CIWA - CIWA Score Nausea/Vomitin-No Nausea/No Vomiting Muscle Tremors: 3 Anxiety: 4-Mod. Anxious/Guarded Agitation: 1-Slight > Activity Paroxysmal Sweats: 2 Orientation: 0-Oriented Tacttile Disturbances: 1-Very Mild Itch/Numbness Auditory Disturbances: 0-None Visual Disturbances: 2-Mild Sensitivity Headache: 0-None Present CIWA-Ar Total Score: 13 BHS Progress Note (SOAP) Subjective: Anxious, Tremors, Sweating, Fatigue. Objective: PATIENT A & O X 3, OBSERVED AMBULATING ON DETOX UNIT UNASSISTED. IN NO ACUTE DISTRESS. 04/18/19 18:06 Vital Signs Temperature 97.2 F L 04/18/19 10:02 Pulse Rate 84 04/18/19 10:02 Respiratory Rate 18 04/18/19 10:02 Blood Pressure 143/91 04/18/19 10:02 O2 Sat by Pulse Oximetry (%) Laboratory Tests 04/18/19 04/18/19 07:55 07:55 WBC 4.0 RBC 4.25 Hgb 11.0 Hct 34.4 MCV 81.1 MCH 25.8 MCHC 31.8 L RDW 16.5 H Plt Count 230 MPV 9.6 Sodium 143 Potassium 3.9 Chloride 109 H Carbon Dioxide 28 Anion Gap 6 L BUN 11.4 Creatinine 0.8 Est GFR (CKD-EPI)AfAm 99.63 Est GFR (CKD-EPI)NonAf 85.96 Random Glucose 83 Calcium 8.5 Total Bilirubin 0.3 AST 12 L ALT 11 L Alkaline Phosphatase 58 Total Protein 6.0 L Albumin 2.8 L LABS NOTED. RESULT OF DETOX ADMISSION RPR PENDING. 04/18/19 18:06 Assessment: 04/18/19 18:08 WITHDRAWAL SYMPTOMS. 04/18/19 18:08 Plan: CONTINUE DETOX. PATIENT REPORTS THAT SHE HAS BEEN TAKING METHIMAZOLE, 10 MG PO DAILY FOR LAST SEVERAL YEARS
[2019-04-18] MEDS: THIAMINE HCL 100 MG TABLET (FP) PO SCH (23:00)
[2019-04-19] MEDS: chlordiazePOXIDE HCL 25 MG CAPSULE PO SCH ×4 (06:37→22:45)
[2019-04-19] MEDS: LORATADINE 10 MG TABLET PO SCH (11:18)
[2019-04-19] MEDS: METHIMAZOLE 10 MG TABLET (FP) PO SCH (11:18)
[2019-04-19] MEDS: PRENATAL VITAMINS W/ FOLIC ACID TABLET (FP) PO SCH (11:18)
[2019-04-19] MEDS: CYANOCOBALAMIN 1,000 MCG TABLET (FP) PO SCH (11:18)
[2019-04-19] MEDS: BUDESONIDE/FORMETEROL FUMARATE 80/4.5 mcg INHALER IH SCH ×2 (11:19→22:46)
[2019-04-19] MEDS: NICOTINE 14 MG/24 HOURS TOPICAL PATCH TD SCH (11:21)
[2019-04-19] MEDS: TOLNAFTATE 1% CREAM 15 GM TUBE TP SCH ×2 (11:21→22:47)
[2019-04-19] MEDS: NIFEdipine E.R 60 MG TABLET (UD) PO SCH (11:24)
[2019-04-19] MEDS: NAPROXEN 500 MG TABLET (FP) PO PRN (11:25)
[2019-04-19] MEDS: MENTHOL/PHENOL 1 EACH UD MM PRN (14:43)
--- NOTE | 2019-04-19 14:44 | PN ---
[facility] CIWA - CIWA Score Nausea/Vomitin-Mild Nausea/No Vomiting Muscle Tremors: 3 Anxiety: 2 Agitation: 1-Slight > Activity Paroxysmal Sweats: 1-Minimal Palms Moist Orientation: 1-Uncertain about Date Tacttile Disturbances: 1-Very Mild Itch/Numbness Auditory Disturbances: 0-None Visual Disturbances: 0-None Headache: 1-Very Mild CIWA-Ar Total Score: 11 S Progress Note (SOAP) Subjective: 48 years old female admitted on 04/17/19 for alcohol withdrawal sx management treated with librium detox regimen patient tolerate welled c/o couging at night clear lung bilaterally on auscultation discuss cigarette related respiratory illnesses Objective: 04/19/19 14:43 Vital Signs Temperature 97.5 F L 04/19/19 13:09 Pulse Rate 87 04/19/19 13:09 Respiratory Rate 18 04/19/19 13:09 Blood Pressure 131/82 04/19/19 13:09 O2 Sat by Pulse Oximetry (%) Laboratory Last Values WBC 4.0 K/mm3 (4.0-10.0) 04/18/19 07:55 RBC 4.25 M/mm3 (3.60-5.2) 04/18/19 07:55 Hgb 11.0 GM/dL (10.7-15.3) 04/18/19 07:55 Hct 34.4 % (32.4-45.2) 04/18/19 07:55 MCV 81.1 fl (80-96) 04/18/19 07:55 MCH 25.8 pg (25.7-33.7) 04/18/19 07:55 MCHC 31.8 g/dl (32.0-36.0) L 04/18/19 07:55 RDW 16.5 % (11.6-15.6) H 04/18/19 07:55 Plt Count 230 K/MM3 (134-434) 04/18/19 07:55 MPV 9.6 fl (7.5-11.1) 04/18/19 07:55 Sodium 143 mmol/L (136-145) 04/18/19 07:55 Potassium 3.9 mmol/L (3.5-5.1) 04/18/19 07:55 Chloride 109 mmol/L (98-107) H 04/18/19 07:55 Carbon Dioxide 28 mmol/L (21-32) 04/18/19 07:55 Anion Gap 6 MMOL/L (8-16) L 04/18/19 07:55 BUN 11.4 mg/dL (7-18) 04/18/19 07:55 Creatinine 0.8 mg/dL (0.55-1.3) 04/18/19 07:55 Est GFR (CKD-EPI)AfAm 99.63 04/18/19 07:55 Est GFR (CKD-EPI)NonAf 85.96 04/18/19 07:55 Random Glucose 83 mg/dL (74-106) 04/18/19 07:55 Calcium 8.5 mg/dL (8.5-10.1) 04/18/19 07:55 Total Bilirubin 0.3 mg/dL (0.2-1) 04/18/19 07:55 AST 12 U/L (15-37) L 04/18/19 07:55 ALT 11 U/L (13-61) L 04/18/19 07:55 Alkaline Phosphatase 58 U/L (45-117) 04/18/19 07:55 Total Protein 6.0 g/dl (6.4-8.2) L 04/18/19 07:55 Albumin 2.8 g/dl (3.4-5.0) L 04/18/19 07:55 RPR Titer Nonreactive (NONREACTIVE) 04/18/19 07:55 lab noted Assessment: 04/19/19 14:44 alcohol withdrawal sx Plan: continue librium detox regimen
[2019-04-19] MEDS: guaiFENesin 600 MG TABLET.ER (FP) PO SCH ×2 (15:56→22:46)
[2019-04-19] MEDS: METHOCARBAMOL 500 MG TABLET PO PRN ×2 (17:33→22:49)
[2019-04-19] MEDS: COLLOIDAL OATMEAL 1 BAR EACH TP PRN (17:44)
[2019-04-19] MEDS: MINERAL OIL/PETROLAT/WATER TOPICAL CREAM 113 GM JAR TP SCH (22:46)
[2019-04-19] MEDS: THIAMINE HCL 100 MG TABLET (FP) PO SCH (22:47)
[2019-04-19] MEDS: MAG HYDROX/AL HYDROX/SIMETH 30 ML UNIT-DOSE CUP PO PRN (22:50)
[2019-04-20] MEDS ORDERED: chlordiazePOXIDE HCL 10 MG CAPSULE PO PRN
[2019-04-20] MEDS: chlordiazePOXIDE HCL 10 MG CAPSULE PO SCH ×4 (06:06→23:14)
--- NOTE | 2019-04-20 09:16 | PN ---
[facility] CIWA - CIWA Score Nausea/Vomitin-No Nausea/No Vomiting Muscle Tremors: 1-None Visible, but [place] Anxiety: 3 Agitation: 1-Slight > Activity Paroxysmal Sweats: 2 Orientation: 1-Uncertain about Date (date of week) Tacttile Disturbances: 0-None Auditory Disturbances: 0-None Visual Disturbances: 0-None Headache: 0-None Present CIWA-Ar Total Score: 8 S Progress Note (SOAP) Subjective: 48 years old female admitted on 04/17/19 for alcohol withdrawal sx management treated with librium detox regimen patient tolerated well ambulating on hallway in room social with roommate and staff speech clearly Objective: 04/20/19 09:15 Vital Signs Temperature 97.8 F 04/20/19 06:52 Pulse Rate 92 H 04/20/19 06:52 Respiratory Rate 18 04/20/19 06:52 Blood Pressure 126/77 04/20/19 06:52 O2 Sat by Pulse Oximetry (%) Laboratory Last Values WBC 4.0 K/mm3 (4.0-10.0) 04/18/19 07:55 RBC 4.25 M/mm3 (3.60-5.2) 04/18/19 07:55 Hgb 11.0 GM/dL (10.7-15.3) 04/18/19 07:55 Hct 34.4 % (32.4-45.2) 04/18/19 07:55 MCV 81.1 fl (80-96) 04/18/19 07:55 MCH 25.8 pg (25.7-33.7) 04/18/19 07:55 MCHC 31.8 g/dl (32.0-36.0) L 04/18/19 07:55 RDW 16.5 % (11.6-15.6) H 04/18/19 07:55 Plt Count 230 K/MM3 (134-434) 04/18/19 07:55 MPV 9.6 fl (7.5-11.1) 04/18/19 07:55 Sodium 143 mmol/L (136-145) 04/18/19 07:55 Potassium 3.9 mmol/L (3.5-5.1) 04/18/19 07:55 Chloride 109 mmol/L (98-107) H 04/18/19 07:55 Carbon Dioxide 28 mmol/L (21-32) 04/18/19 07:55 Anion Gap 6 MMOL/L (8-16) L 04/18/19 07:55 BUN 11.4 mg/dL (7-18) 04/18/19 07:55 Creatinine 0.8 mg/dL (0.55-1.3) 04/18/19 07:55 Est GFR (CKD-EPI)AfAm 99.63 04/18/19 07:55 Est GFR (CKD-EPI)NonAf 85.96 04/18/19 07:55 Random Glucose 83 mg/dL (74-106) 04/18/19 07:55 Calcium 8.5 mg/dL (8.5-10.1) 04/18/19 07:55 Total Bilirubin 0.3 mg/dL (0.2-1) 04/18/19 07:55 AST 12 U/L (15-37) L 04/18/19 07:55 ALT 11 U/L (13-61) L 04/18/19 07:55 Alkaline Phosphatase 58 U/L (45-117) 04/18/19 07:55 Total Protein 6.0 g/dl (6.4-8.2) L 04/18/19 07:55 Albumin 2.8 g/dl (3.4-5.0) L 04/18/19 07:55 POC Urine HCG, Qual Negative 04/17/19 21:07 RPR Titer Nonreactive (NONREACTIVE) 04/18/19 07:55 lab noted Assessment: 04/20/19 09:15 alcohol withdrawal sx Plan: continue librium detox regimen
[2019-04-20] MEDS: BUDESONIDE/FORMETEROL FUMARATE 80/4.5 mcg INHALER IH SCH ×2 (10:38→22:41)
[2019-04-20] MEDS: CYANOCOBALAMIN 1,000 MCG TABLET (FP) PO SCH (10:39)
[2019-04-20] MEDS: MINERAL OIL/PETROLAT/WATER TOPICAL CREAM 113 GM JAR TP SCH ×2 (10:39→22:41)
[2019-04-20] MEDS: TOLNAFTATE 1% CREAM 15 GM TUBE TP SCH ×2 (10:39→22:41)
[2019-04-20] MEDS: NICOTINE 14 MG/24 HOURS TOPICAL PATCH TD SCH (10:39)
[2019-04-20] MEDS: NIFEdipine E.R 60 MG TABLET (UD) PO SCH (10:39)
[2019-04-20] MEDS: guaiFENesin 600 MG TABLET.ER (FP) PO SCH ×2 (10:39→22:41)
[2019-04-20] MEDS: METHIMAZOLE 10 MG TABLET (FP) PO SCH (10:39)
[2019-04-20] MEDS: PRENATAL VITAMINS W/ FOLIC ACID TABLET (FP) PO SCH (10:39)
[2019-04-20] MEDS: LORATADINE 10 MG TABLET PO SCH (12:40)
[2019-04-20] MEDS: MAG HYDROX/AL HYDROX/SIMETH 30 ML UNIT-DOSE CUP PO PRN (14:26)
[2019-04-20] MEDS: MENTHOL/PHENOL 1 EACH UD MM PRN (14:26)
[2019-04-20] MEDS: BISMUTH SUBSALICYLATE 524 MG/30 ML UD PO PRN ×2 (15:47→18:26)
[2019-04-20] MEDS ORDERED: LOPERAMIDE HCL 2 MG CAPSULE PO PRN (22:15)
[2019-04-20] MEDS: THIAMINE HCL 100 MG TABLET (FP) PO SCH (22:41)
[2019-04-21] MEDS: chlordiazePOXIDE HCL 10 MG CAPSULE PO SCH ×2 (06:30→16:30)
[2019-04-21] MEDS ORDERED: LOPERAMIDE HCL 2 MG CAPSULE PO ONE ×2 (09:42→14:00)
[2019-04-21] MEDS: BUDESONIDE/FORMETEROL FUMARATE 80/4.5 mcg INHALER IH SCH ×2 (10:31→22:28)
[2019-04-21] MEDS: COLLOIDAL OATMEAL 1 BAR EACH TP PRN (10:34)
[2019-04-21] MEDS: VITAMINS A AND D TOPICAL OINTMENT 60 GM TUBE TP SCH ×2 (10:35→22:28)
[2019-04-21] MEDS ORDERED: ONDANSETRON *ODT* 4 MG TABLET SL ONE (10:35)
--- NOTE | 2019-04-21 11:07 | EKG ---
Test Reason : Blood Pressure : / mmHG Vent. Rate : 085 BPM Atrial Rate : 085 BPM P-R Int : 150 ms QRS Dur : 082 ms QT Int : 404 ms P-R-T Axes : 062 010 042 degrees QTc Int : 480 ms NORMAL SINUS RHYTHM MINIMAL VOLTAGE CRITERIA FOR LVH, MAY BE NORMAL VARIANT SEPTAL INFARCT , AGE UNDETERMINED ABNORMAL ECG WHEN COMPARED WITH ECG OF 21-OCT-2017 22:04, SEPTAL INFARCT IS NOW PRESENT Confirmed by Carlos Germain MD ([id number]) on 04/21/2019 11:06:51 AM Referred By: Confirmed By:Carlos Germain MD
[2019-04-21] MEDS: NIFEdipine E.R 60 MG TABLET (UD) PO SCH (12:18)
[2019-04-21] MEDS: LORATADINE 10 MG TABLET PO SCH (12:21)
[2019-04-21] MEDS: NICOTINE 14 MG/24 HOURS TOPICAL PATCH TD SCH (12:21)
[2019-04-21] MEDS: TOLNAFTATE 1% CREAM 15 GM TUBE TP SCH ×2 (12:21→22:28)
[2019-04-21] MEDS: guaiFENesin 600 MG TABLET.ER (FP) PO SCH ×2 (12:21→22:28)
[2019-04-21] MEDS: MINERAL OIL/PETROLAT/WATER TOPICAL CREAM 113 GM JAR TP SCH ×2 (12:21→22:28)
[2019-04-21] MEDS: PRENATAL VITAMINS W/ FOLIC ACID TABLET (FP) PO SCH (12:21)
[2019-04-21] MEDS: METHIMAZOLE 10 MG TABLET (FP) PO SCH (12:21)
[2019-04-21] MEDS: CYANOCOBALAMIN 1,000 MCG TABLET (FP) PO SCH (12:21)
[2019-04-21] MEDS ORDERED: DIPHENOXYLATE 2.5/ATROPINE.025 1 COMBO TABLET PO ONE (14:00)
[2019-04-21] MEDS ORDERED: DIPHENOXYLATE 2.5/ATROPINE.025 1 COMBO TABLET PO PRN (14:17)
[2019-04-21] MEDS: METHOCARBAMOL 500 MG TABLET PO PRN (16:30)
[2019-04-21] MEDS: NAPROXEN 500 MG TABLET (FP) PO PRN (16:30)
[2019-04-21] MEDS ORDERED: LOPERAMIDE HCL 2 MG CAPSULE PO PRN ×2 (18:00)
[2019-04-21] MEDS: MAG HYDROX/AL HYDROX/SIMETH 30 ML UNIT-DOSE CUP PO PRN (19:12)
[2019-04-21] MEDS: THIAMINE HCL 100 MG TABLET (FP) PO SCH (22:28)
[2019-04-22] MEDS ORDERED: chlordiazePOXIDE HCL 10 MG CAPSULE PO ONE (05:00)
[2019-04-22] MEDS: MAG HYDROX/AL HYDROX/SIMETH 30 ML UNIT-DOSE CUP PO PRN (06:20)
[2019-04-22 09:19] VITALS: BP 124/79; PULSE 114; TEMP 98
--- NOTE | 2019-04-22 09:35 | PN ---
S CIWA - CIWA Score Nausea/Vomitin-Mild Nausea/No Vomiting Muscle Tremors: 2 Anxiety: 2 Agitation: 2 Paroxysmal Sweats: No Perspiration Orientation: 0-Oriented Tacttile Disturbances: 0-None Auditory Disturbances: 0-None Visual Disturbances: 0-None Headache: 0-None Present CIWA-Ar Total Score: 7 S Progress Note (SOAP) Subjective: diarrhea lomotile prn less loose stoole Objective: 04/21/19 09:34 Vital Signs Temperature 98.0 F 04/22/19 09:18 Pulse Rate 114 H 04/22/19 09:18 Respiratory Rate 20 04/22/19 09:18 Blood Pressure 124/79 04/22/19 09:18 O2 Sat by Pulse Oximetry (%) Laboratory Last Values WBC 4.0 K/mm3 (4.0-10.0) 04/18/19 07:55 RBC 4.25 M/mm3 (3.60-5.2) 04/18/19 07:55 Hgb 11.0 GM/dL (10.7-15.3) 04/18/19 07:55 Hct 34.4 % (32.4-45.2) 04/18/19 07:55 MCV 81.1 fl (80-96) 04/18/19 07:55 MCH 25.8 pg (25.7-33.7) 04/18/19 07:55 MCHC 31.8 g/dl (32.0-36.0) L 04/18/19 07:55 RDW 16.5 % (11.6-15.6) H 04/18/19 07:55 Plt Count 230 K/MM3 (134-434) 04/18/19 07:55 MPV 9.6 fl (7.5-11.1) 04/18/19 07:55 Sodium 143 mmol/L (136-145) 04/18/19 07:55 Potassium 3.9 mmol/L (3.5-5.1) 04/18/19 07:55 Chloride 109 mmol/L (98-107) H 04/18/19 07:55 Carbon Dioxide 28 mmol/L (21-32) 04/18/19 07:55 Anion Gap 6 MMOL/L (8-16) L 04/18/19 07:55 BUN 11.4 mg/dL (7-18) 04/18/19 07:55 Creatinine 0.8 mg/dL (0.55-1.3) 04/18/19 07:55 Est GFR (CKD-EPI)AfAm 99.63 04/18/19 07:55 Est GFR (CKD-EPI)NonAf 85.96 04/18/19 07:55 Random Glucose 83 mg/dL (74-106) 04/18/19 07:55 Calcium 8.5 mg/dL (8.5-10.1) 04/18/19 07:55 Total Bilirubin 0.3 mg/dL (0.2-1) 04/18/19 07:55 AST 12 U/L (15-37) L 04/18/19 07:55 ALT 11 U/L (13-61) L 04/18/19 07:55 Alkaline Phosphatase 58 U/L (45-117) 04/18/19 07:55 Total Protein 6.0 g/dl (6.4-8.2) L 04/18/19 07:55 Albumin 2.8 g/dl (3.4-5.0) L 04/18/19 07:55 POC Urine HCG, Qual Negative 04/17/19 21:07 RPR Titer Nonreactive (NONREACTIVE) 04/18/19 07:55 lab noted Assessment: 04/21/19 09:35 alcohol withdrawal sx Plan: continue librium detox regimen
--- NOTE | 2019-04-22 09:38 | DS ---
[facility] Detox Discharge Summary Admission Date: 04/17/19 Discharge Date: 04/22/19 - History Present History: Alcohol Dependence Additional Comments: 48 years old female admitted on 04/17/19 for alcohol withdrawal sx management treated with librium detox regimen patient is alert oriented x 3 cardiac S1S2 regular rate rhythm respiratory clear lung bilaterally on auscultation extremite full range of motion - Physical Exam Results Vital Signs: Vital Signs Temperature 98.0 F 04/22/19 09:18 Pulse Rate 114 H 04/22/19 09:18 Respiratory Rate 20 04/22/19 09:18 Blood Pressure 124/79 04/22/19 09:18 O2 Sat by Pulse Oximetry (%) Pertinent Admission Physical Exam Findings: alcohol withdrawal sx Laboratory Last Values WBC 4.0 K/mm3 (4.0-10.0) 04/18/19 07:55 RBC 4.25 M/mm3 (3.60-5.2) 04/18/19 07:55 Hgb 11.0 GM/dL (10.7-15.3) 04/18/19 07:55 Hct 34.4 % (32.4-45.2) 04/18/19 07:55 MCV 81.1 fl (80-96) 04/18/19 07:55 MCH 25.8 pg (25.7-33.7) 04/18/19 07:55 MCHC 31.8 g/dl (32.0-36.0) L 04/18/19 07:55 RDW 16.5 % (11.6-15.6) H 04/18/19 07:55 Plt Count 230 K/MM3 (134-434) 04/18/19 07:55 MPV 9.6 fl (7.5-11.1) 04/18/19 07:55 Sodium 143 mmol/L (136-145) 04/18/19 07:55 Potassium 3.9 mmol/L (3.5-5.1) 04/18/19 07:55 Chloride 109 mmol/L (98-107) H 04/18/19 07:55 Carbon Dioxide 28 mmol/L (21-32) 04/18/19 07:55 Anion Gap 6 MMOL/L (8-16) L 04/18/19 07:55 BUN 11.4 mg/dL (7-18) 04/18/19 07:55 Creatinine 0.8 mg/dL (0.55-1.3) 04/18/19 07:55 Est GFR (CKD-EPI)AfAm 99.63 04/18/19 07:55 Est GFR (CKD-EPI)NonAf 85.96 04/18/19 07:55 Random Glucose 83 mg/dL (74-106) 04/18/19 07:55 Calcium 8.5 mg/dL (8.5-10.1) 04/18/19 07:55 Total Bilirubin 0.3 mg/dL (0.2-1) 04/18/19 07:55 AST 12 U/L (15-37) L 04/18/19 07:55 ALT 11 U/L (13-61) L 04/18/19 07:55 Alkaline Phosphatase 58 U/L (45-117) 04/18/19 07:55 Total Protein 6.0 g/dl (6.4-8.2) L 04/18/19 07:55 Albumin 2.8 g/dl (3.4-5.0) L 04/18/19 07:55 POC Urine HCG, Qual Negative 04/17/19 21:07 RPR Titer Nonreactive (NONREACTIVE) 04/18/19 07:55 lab noted - Treatment Hospital Course: Detox Protocol Followed, Detoxed Safely, Responded well, Discharged Condition Good, Rehab Referral Accepted Patient has Accepted a Rehab Referral to: [facility] - Medication Discharge Medications: Ambulatory Orders Methimazole [Tapazole -] 10 mg PO DAILY #30 tablet 06/19/17 Ascorbic Acid [Vitamin C -] 500 mg PO DAILY #14 tablet 11/19/18 Buspirone HCl [Buspar -] 15 mg PO DAILY #30 tablet 11/19/18 Cyanocobalamin [Vitamin B12 -] 1,000 mcg PO DAILY #14 tablet 11/19/18 Methocarbamol [Robaxin -] 750 mg PO HS #30 tablet 11/19/18 Naproxen [Naprosyn -] 800 mg PO BID #30 tablet 11/19/18 Tolnaftate 1% Cream [Tinactin 1% Cream -] 1 applic TP BID #1 cream..g. 11/19/18 Albuterol Sulfate Inhaler - [Ventolin HFA Inhaler -] 2 inh PO Q4H PRN #1 mg Budesonide/Formeterol Fumarate [SYMBICORT 80/4.5mcg -] 1 inh PO BID #1 inhaler 04/21/19 Loratadine [Claritin -] 10 mg PO DAILY #14 tablet 04/21/19 Nifedipine ER [Procardia XL -] 60 mg PO DAILY #14 tab.er.24 04/21/19 - Diagnosis (1) Alcohol dependence with uncomplicated withdrawal Status: Acute (2) Anemia Status: Chronic Qualifiers: Anemia type: iron deficiency Iron deficiency anemia type: unspecified iron deficiency Qualified Code(s): D50.9 - Iron deficiency anemia, unspecified (3) Asthma Status: Chronic Qualifiers: Asthma severity: mild Asthma persistence: intermittent Asthma complication type: unspecified Qualified Code(s): J45.20 - Mild intermittent asthma, uncomplicated (4) HTN (hypertension) Status: Chronic Qualifiers: Hypertension type: essential hypertension Qualified Code(s): I10 - Essential (primary) hypertension (5) Nicotine dependence Status: Acute Qualifiers: Nicotine product type: cigarettes Substance use status: in withdrawal Qualified Code(s): F17.213 - Nicotine dependence, cigarettes, with withdrawal (6) Substance induced mood disorder Status: Suspected - AMA Did Patient Leave Against Medical Advice: No CIWA Score - CIWA Score Nausea/Vomitin-No Nausea/No Vomiting Muscle Tremors: 1-None Visible, but [place] Anxiety: 1-Mildly Anxious Agitation: 1-Slight > Activity Paroxysmal Sweats: No Perspiration Orientation: 0-Oriented Tacttile Disturbances: 0-None Auditory Disturbances: 0-None Visual Disturbances: 0-None Headache: 0-None Present CIWA-Ar Total Score: 3
== END 2019-04-22 09:32 | disposition home or self-care (01) | DRG 774 ==
LOC: YASAS 14:41 → Y3N 23:27
PROVIDERS: ADMIT Allergy & Immunology; ATTEND Allergy & Immunology
PROC: HZ2ZZZZ Detoxification Services for Substance Abuse Treatment (ICD-10-PCS; principal; 2019-04-17)
DX: F10.230 Alcohol dependence with withdrawal, uncomplicated (principal); F14.20 Cocaine dependence, uncomplicated; F17.213 Nicotine dependence, cigarettes, with withdrawal; F19.24 Other psychoactive substance dependence with psychoactive substance-induced mood disorder; F32.9 Major depressive disorder, single episode, unspecified; I10 Essential (primary) hypertension; D50.9 Iron deficiency anemia, unspecified; D51.9 Vitamin B12 deficiency anemia, unspecified; J45.20 Mild intermittent asthma, uncomplicated; E05.90 Thyrotoxicosis, unspecified without thyrotoxic crisis or storm; Z91.19 Patient's noncompliance with other medical treatment and regimen; Z59.0 Homelessness
CPT/HCPCS: 36415; 80053; 81025; 85027; 86593; 93005; 93010; Q0162

== ENCOUNTER 2022-08-12 10:57 | Inpatient (IN) | payer OTHER ==
[2022-08-12 12:52] VITALS: BMI 24.3
[2022-08-12] MEDS ORDERED: LOPERAMIDE HCL 2 MG CAPSULE PO PRN (13:05)
[2022-08-12] MEDS ORDERED: ONDANSETRON *ODT* 4 MG TABLET SL PRN (13:05)
[2022-08-12] MEDS ORDERED: MAG HYDROX/AL HYDROX/SIMETH 30 ML UNIT-DOSE CUP PO PRN (13:05)
[2022-08-12] MEDS ORDERED: chlordiazePOXIDE HCL 25 MG CAPSULE PO PRN (13:05)
[2022-08-12] MEDS ORDERED: POLYETHYLENE GLYCOL (HEALTHYLAX) 3350 17 GM PACKET PO PRN (13:05)
[2022-08-12] MEDS ORDERED: IBUPROFEN 400 MG TABLET (FP) PO PRN (13:05)
[2022-08-12] MEDS ORDERED: NICOTINE 10 MG CARTRIDGE (INHALER) IH PRN (13:05)
[2022-08-12] MEDS ORDERED: NALOXONE HCL (KLOXXADO) 8 MG SPRAY NS PRN (13:05)
[2022-08-12] MEDS ORDERED: MAGNESIUM HYDROX 2400MG/30ML ORAL SUSPENSION 30 ML CUP PO PRN (13:05)
[2022-08-12] MEDS ORDERED: BISMUTH SUBSALICYLATE 524 MG/30 ML PO PRN (13:05)
[2022-08-12] MEDS ORDERED: ACETAMINOPHEN 325 MG TABLET (FP) PO PRN ×2 (13:05)
[2022-08-12] MEDS ORDERED: DICYCLOMINE HCL 10 MG CAPSULE PO PRN (13:05)
[2022-08-12] MEDS: hydrOXYzine PAMOATE 25 MG CAPSULE (FP) PO PRN (14:00)
[2022-08-12] MEDS: METHOCARBAMOL 500 MG TABLET PO PRN (14:01)
[2022-08-12] MEDS: chlordiazePOXIDE HCL 25 MG CAPSULE PO SCH ×2 (18:00→22:22)
[2022-08-12] MEDS: THIAMINE HCL 100 MG TABLET (FP) PO SCH (22:22)
[2022-08-12] MEDS: MELATONIN 5 MG TABLETS PO SCH (22:22)
[2022-08-12] MEDS: BUDESONIDE/FORMETEROL FUMARATE 80/4.5 mcg INHALER IH SCH (22:26)
[2022-08-13] MEDS: chlordiazePOXIDE HCL 25 MG CAPSULE PO SCH ×4 (06:00→22:15)
[2022-08-13] MEDS: NIFEdipine E.R 60 MG TABLET PO SCH (10:42)
[2022-08-13] MEDS: PRENATAL VITAMINS W/ FOLIC ACID TABLET (FP) PO SCH (10:42)
[2022-08-13] MEDS: BUDESONIDE/FORMETEROL FUMARATE 80/4.5 mcg INHALER IH SCH ×2 (10:42→21:05)
[2022-08-13] MEDS: METHIMAZOLE 10 MG TABLET PO SCH (10:43)
[2022-08-13] MEDS: guaiFENesin 200 MG/10 ML 10 ML UNIT-DOSE CUPS PO PRN ×2 (10:44→17:43)
[2022-08-13 13:32] LABS: HEMATOCRIT 37.8 % (32.4-45.2); HEMOGLOBIN 11.9 GM/dL (10.7-15.3); MCH 25.1 pg (25.7-33.7); MCHC 31.4 g/dl (32.0-36.0); MEAN CELL VOLUME 79.7 fl (80-96); MEAN PLT VOLUME 9.5 fl (7.5-11.1); PLATELET COUNT 243 10^3/uL (134-434); RBC 4.74 M/mm3 (3.60-5.2); RDW 15.7 % (11.6-15.6); WHITE BLOOD COUNT 5.2 K/mm3 (4.0-10.0)
[2022-08-13 13:50] LABS: CALCIUM 8.4 mg/dL (8.5-10.1)
[2022-08-13 13:51] LABS: ALBUMIN 3.1 g/dl (3.4-5.0); BLOOD UREA NITROGEN 14.2 mg/dL (7-18)
[2022-08-13 13:55] LABS: BILIRUBIN,TOTAL 0.2 mg/dL (0.2-1); TOT PROT 6.5 g/dl (6.4-8.2)
[2022-08-13 14:01] LABS: CREATININE 0.8 mg/dL (0.55-1.3)
[2022-08-13] MEDS: BENZOCAINE/MENTHOL (CHLORASEPTIC ) LOZENGE MM PRN ×2 (17:44→22:18)
[2022-08-13] MEDS: MELATONIN 5 MG TABLETS PO SCH (22:13)
[2022-08-13] MEDS: ALBUTEROL SO4 HFA INHALER IH PRN (22:13)
[2022-08-13] MEDS: hydrOXYzine PAMOATE 25 MG CAPSULE (FP) PO PRN (22:13)
[2022-08-13] MEDS: THIAMINE HCL 100 MG TABLET (FP) PO SCH (22:14)
[2022-08-14] MEDS: guaiFENesin 200 MG/10 ML 10 ML UNIT-DOSE CUPS PO PRN ×3 (02:40→20:21)
[2022-08-14] MEDS: chlordiazePOXIDE HCL 25 MG CAPSULE PO SCH ×4 (05:59→22:16)
[2022-08-14] MEDS: BUDESONIDE/FORMETEROL FUMARATE 80/4.5 mcg INHALER IH SCH ×2 (10:13→22:28)
[2022-08-14] MEDS: ALBUTEROL SO4 HFA INHALER IH PRN ×2 (10:14→22:28)
[2022-08-14] MEDS: PRENATAL VITAMINS W/ FOLIC ACID TABLET (FP) PO SCH (10:57)
[2022-08-14] MEDS: NIFEdipine E.R 60 MG TABLET PO SCH (11:24)
[2022-08-14] MEDS: METHIMAZOLE 10 MG TABLET PO SCH (11:25)
[2022-08-14] MEDS: hydrOXYzine PAMOATE 25 MG CAPSULE (FP) PO PRN (18:50)
[2022-08-14] MEDS: METHOCARBAMOL 500 MG TABLET PO PRN (18:50)
[2022-08-14] MEDS ORDERED: predniSONE 10 MG TABLET (UD) PO SCH (20:00)
[2022-08-14] MEDS ORDERED: predniSONE 20 MG TABLET (UD) PO SCH (20:00)
[2022-08-14] MEDS: predniSONE 20 MG TABLET (UD) PO SCH (21:40)
[2022-08-14] MEDS: THIAMINE HCL 100 MG TABLET (FP) PO SCH (22:16)
[2022-08-14] MEDS: MELATONIN 5 MG TABLETS PO SCH (22:16)
[2022-08-15] MEDS ORDERED: chlordiazePOXIDE HCL 10 MG CAPSULE PO PRN
[2022-08-15] MEDS: chlordiazePOXIDE HCL 10 MG CAPSULE PO SCH ×4 (05:44→22:13)
[2022-08-15] MEDS: BENZOCAINE/MENTHOL (CHLORASEPTIC ) LOZENGE MM PRN ×3 (05:45→19:26)
[2022-08-15] MEDS: guaiFENesin 200 MG/10 ML 10 ML UNIT-DOSE CUPS PO PRN ×3 (08:54→19:23)
[2022-08-15] MEDS ORDERED: ERGOCALCIFEROL (VIT D2) 50,000 UNIT (1.25 MG) CAPSULE PO SCH (10:00)
[2022-08-15] MEDS: hydrOXYzine PAMOATE 25 MG CAPSULE (FP) PO PRN ×2 (10:19→22:13)
[2022-08-15] MEDS: NIFEdipine E.R 60 MG TABLET PO SCH (10:19)
[2022-08-15] MEDS: PRENATAL VITAMINS W/ FOLIC ACID TABLET (FP) PO SCH (10:20)
[2022-08-15] MEDS: METHOCARBAMOL 500 MG TABLET PO PRN ×2 (10:20→22:13)
[2022-08-15] MEDS: predniSONE 20 MG TABLET (UD) PO SCH (10:20)
[2022-08-15] MEDS: BUDESONIDE/FORMETEROL FUMARATE 80/4.5 mcg INHALER IH SCH ×2 (10:24→22:14)
[2022-08-15] MEDS: METHIMAZOLE 10 MG TABLET PO SCH (10:25)
[2022-08-15] MEDS: IBUPROFEN 600 MG TABLET (FP) PO PRN (17:39)
[2022-08-15] MEDS: THIAMINE HCL 100 MG TABLET (FP) PO SCH (22:13)
[2022-08-15] MEDS: MELATONIN 5 MG TABLETS PO SCH (22:13)
[2022-08-15] MEDS: ALBUTEROL SO4 HFA INHALER IH PRN (22:14)
[2022-08-16] MEDS: guaiFENesin 200 MG/10 ML 10 ML UNIT-DOSE CUPS PO PRN ×3 (02:28→18:59)
[2022-08-16] MEDS: ALBUTEROL SO4 HFA INHALER IH PRN (02:30)
[2022-08-16] MEDS: METHOCARBAMOL 500 MG TABLET PO PRN ×2 (04:13→17:32)
[2022-08-16] MEDS: chlordiazePOXIDE HCL 10 MG CAPSULE PO SCH ×2 (05:23→17:30)
[2022-08-16] MEDS: BUDESONIDE/FORMETEROL FUMARATE 80/4.5 mcg INHALER IH SCH ×2 (09:58→22:21)
[2022-08-16] MEDS: PRENATAL VITAMINS W/ FOLIC ACID TABLET (FP) PO SCH (10:06)
[2022-08-16] MEDS: NIFEdipine E.R 60 MG TABLET PO SCH (10:07)
[2022-08-16] MEDS: METHIMAZOLE 10 MG TABLET PO SCH (10:08)
[2022-08-16] MEDS: predniSONE 20 MG TABLET (UD) PO SCH (10:51)
[2022-08-16] MEDS: PETROLATUM,WHITE OINTMENT 3.5 OZ JAR TP SCH ×2 (12:12→22:24)
[2022-08-16] MEDS: IBUPROFEN 600 MG TABLET (FP) PO PRN (13:04)
[2022-08-16] MEDS: BENZOCAINE/MENTHOL (CHLORASEPTIC ) LOZENGE MM PRN (18:59)
[2022-08-16] MEDS: THIAMINE HCL 100 MG TABLET (FP) PO SCH (22:20)
[2022-08-16] MEDS: MELATONIN 5 MG TABLETS PO SCH (22:21)
[2022-08-17] MEDS: ALBUTEROL SO4 HFA INHALER IH PRN ×2 (00:40→10:08)
[2022-08-17] MEDS: guaiFENesin 200 MG/10 ML 10 ML UNIT-DOSE CUPS PO PRN (01:35)
[2022-08-17] MEDS: BENZOCAINE/MENTHOL (CHLORASEPTIC ) LOZENGE MM PRN (01:37)
[2022-08-17] MEDS: METHOCARBAMOL 500 MG TABLET PO PRN (04:14)
[2022-08-17] MEDS ORDERED: chlordiazePOXIDE HCL 10 MG CAPSULE PO ONE (05:00)
[2022-08-17 09:34] VITALS: BP 125/63; PULSE 100; RESP 17; TEMP 96.9
[2022-08-17] MEDS: PRENATAL VITAMINS W/ FOLIC ACID TABLET (FP) PO SCH (10:06)
[2022-08-17] MEDS: METHIMAZOLE 10 MG TABLET PO SCH (10:06)
[2022-08-17] MEDS: predniSONE 20 MG TABLET (UD) PO SCH (10:06)
[2022-08-17] MEDS: BUDESONIDE/FORMETEROL FUMARATE 80/4.5 mcg INHALER IH SCH (10:06)
[2022-08-17] MEDS: NIFEdipine E.R 60 MG TABLET PO SCH (10:06)
[2022-08-17] MEDS: PETROLATUM,WHITE OINTMENT 3.5 OZ JAR TP SCH (10:07)
== END 2022-08-17 13:15 | disposition home or self-care (01) | DRG 774 ==
LOC: YASAS 10:57 → Y3N 13:22 → Y6N 08-14 05:55
PROVIDERS: ADMIT Allergy & Immunology; ATTEND Surgery
PROC: HZ2ZZZZ Detoxification Services for Substance Abuse Treatment (ICD-10-PCS; principal; 2022-08-12)
DX: F10.230 Alcohol dependence with withdrawal, uncomplicated (principal); F14.20 Cocaine dependence, uncomplicated; F17.213 Nicotine dependence, cigarettes, with withdrawal; F31.9 Bipolar disorder, unspecified; F43.10 Post-traumatic stress disorder, unspecified; D50.8 Other iron deficiency anemias; E05.90 Thyrotoxicosis, unspecified without thyrotoxic crisis or storm; I10 Essential (primary) hypertension; J45.20 Mild intermittent asthma, uncomplicated; M54.41 Lumbago with sciatica, right side; M54.42 Lumbago with sciatica, left side; G89.29 Other chronic pain; R05.9 Cough, unspecified; Z86.69 Personal history of other diseases of the nervous system and sense organs; Z59.00 Homelessness unspecified
CPT/HCPCS: 36415; 80053; 85027; 86480; 86780; 87811; C9803-CS; U0003; U0005